=== PATIENT | female | born 1965 | race Caucasian/White ===

== ENCOUNTER → 2017-06-29 15:35 | Outpatient (CLI) | payer BC, SELFPAY ==
--- NOTE | 2017-06-29 15:38 | RAD_ITS ---
STUDY: X-RAY - RIGHT ANKLE REASON FOR EXAM: Female, 51 years old. Sprain TECHNIQUE: 3 view(s) of the ankle. COMPARISON: None. FINDINGS: Normal visualized distal tibia and fibula. Normal medial and lateral malleoli. Normal tibiotalar articulation and ankle mortise. Normal visualized talus and calcaneus. The visualized subtalar, talonavicular, calcaneocuboid and tarsal articulations are normal. Mild soft tissue swelling overlying the lateral malleolus.. RAD/Ankle min 3 Views IMPRESSION: Mild lateral malleolus sprain. No evidence for acute fracture Electronically Signed: Gerald Galindo MD at 16:50 EDT , Service support ,
== END ==
PROVIDERS: Family Provider Family Medicine; PCP Family Medicine; Visit Provider Family Medicine
DX: S93.401A Sprain of unspecified ligament of right ankle, initial encounter (principal)
CPT/HCPCS: 73610

== ENCOUNTER → 2018-03-02 12:30 | Outpatient (CLI) | payer BC, SELFPAY ==
--- NOTE | 2018-03-02 12:33 | BI_ITS ---
MAMMOGRAPHY - BILATERAL SCREENING REASON FOR EXAM: Female, 52 years old. Routine annual screening examination. PERTINENT HISTORY: Non-contributory. TECHNIQUE: Digital bilateral breast katharine (3D mammographic acquisition) in the CC and MLO projections. 2-D mediolateral oblique (MLO) and craniocaudad (CC) views of both breasts were obtained. CAD: Full Field Digital Mammography with Computer Added Detection was not performed. COMPARISON: Comparison is made with prior study dated February 03, 2017 and February 02, 2016. FINDINGS: Breast Composition: The breasts are heterogeneously dense, which may obscure small masses. There are no dominant masses or suspicious calcifications. No other significant abnormalities are identified. There has been no significant change since the prior study. BI/SCREENING MAMM (CAD), BILAT IMPRESSION: Stable bilateral screening mammogram. Yearly follow-up mammogram recommended. (A) ASSESSMENT CATEGORY: BIRADS Category 1: Negative. A letter regarding these results will be sent to the patient by the facility within 30 days. Approximately 10% of breast cancers are not detected by mammography. A normal mammogram should not delay biopsy of a clinically suspicious abnormality. [id number] Electronically Signed: Andrei Smith MD at 8:26 EST Tel [phone], Service support ,
== END ==
PROVIDERS: Family Provider Family Medicine; PCP Family Medicine; Referring Provider Obstetrics & Gynecology; Visit Provider Obstetrics & Gynecology
DX: Z12.31 Encounter for screening mammogram for malignant neoplasm of breast (principal)
CPT/HCPCS: 77063; 77067

== ENCOUNTER → 2018-05-28 | Outpatient (CLI) | payer BC, SELFPAY ==
[2016-12-21 06:14] VITALS: BMI 25.6
[2018-05-28 10:00] LABS: Absolute Lymphocyte Count 2.25 X10^3/ul (0.83-4.51); Absolute Neutrophil Count 3.1 X10^3/uL (2.0-7.7); Basophil# 0.02 X10^3/uL; Basophil% 0.3 % (0-1); Eosinophil# 0.23 X10^3/uL; Eosinophils% 3.8 % (0-5); Hematocrit 43.4 % (37-47); Hemoglobin 14.9 g/dl (12.0-15.0); Lymphocyte # 2.25 X10^3/ul (4.0); Lymphocyte % 37.6 % (19-41); Mean Corp Hgb Conc 34.3 g/gl (32-36); Mean Corpuscular Hgb 28.3 pg (27.0-32.0); Mean Corpuscular Volume 82.5 fL (81-99); Mean Platelet Vol. 10.1 fl (6.2-12.0); Monocyte# 0.42 X10^3/uL; Neutrophil # 3.06 X10^3/uL (2.7-7.7); Neutrophil % 51.3 % (47-70); Platelet Count 397 K/mm3 (150-450); RBC Distribution Width CV 13.5 % (11.6-14.6); RBC Distribution Width SD 40.2 fl (35.1-43.9); Red Blood Count 5.26 M/mm3 (4.2-5.4)
[2018-05-28 10:05] LABS: POSITIVE COUNT NO; POSITIVE DIFFERENTIAL NO; POSITIVE MORPHOLOGY NO
[2018-05-28 10:06] LABS: Anion Gap 6 (5-15); BUN 15 mg/dL (7-18); BUN/Creat Ratio 18.9 RATIO (10-20); Chloride 107 mmol/L (98-107); Cholesterol 283 mg/dL (200); Creatinine, Serum 0.79 mg/dL (0.55-1.02); EST Glomerular Filtration Rate 80 mL/min (>60); Est Glom Filt Rate - Afr Amer 97 mL/min (>60); Glucose 90 mg/dL (74-106); High Density Lipoprotein 55 mg/dL; Potassium 3.5 mmol/L (3.5-5.1); Sodium Level 138 mmol/L (136-145); Triglycerides 126 mg/dL; Very Low Density Lipoprotein 25 mg/dL (5-40)
[2018-05-28 10:16] LABS: Vitamin D,25 Hydroxy 35.4 ng/mL (29.95-100.01)
== END | disposition home or self-care (01) ==
PROVIDERS: Family Provider Family Medicine; PCP Family Medicine; Referring Provider Family Medicine; Visit Provider Family Medicine
DX: K58.9 Irritable bowel syndrome, unspecified (principal); E78.00 Pure hypercholesterolemia, unspecified
CPT/HCPCS: 36415; 80048; 80061; 82306; 85025

== ENCOUNTER → 2019-01-28 14:30 | Outpatient (CLI) | payer BC, SELFPAY ==
[2019-01-31 12:07] LABS: Age Gdln ACOG Testing 30-65 (.)
[2019-01-31 15:46] LABS: HPV APTIMA, High Risk Negative (Negative); HPV Reflexed? YES, CHARGE PATIENT
== END ==
PROVIDERS: Visit Provider Obstetrics & Gynecology
DX: Z12.4 Encounter for screening for malignant neoplasm of cervix (principal)
CPT/HCPCS: 87624; 88175; G0145

== ENCOUNTER → 2019-03-05 12:41 | Outpatient (CLI) | payer BC, SELFPAY ==
--- NOTE | 2019-03-05 12:43 | BI_ITS ---
MAMMOGRAPHY - BILATERAL SCREENING REASON FOR EXAM: Female, 53 years old. Routine annual screening examination. PERTINENT HISTORY: Non-contributory. TECHNIQUE: Digital bilateral breast carie (3D mammographic acquisition) in the CC and MLO projections. 2-D mediolateral oblique (MLO) and craniocaudad (CC) views of both breasts were obtained. CAD: Full Field Digital Mammography with Computer Added Detection was performed. COMPARISON: Comparison is made with prior study dated March 02, 2018 and February 03, 2017. FINDINGS: Breast Composition: The breasts are heterogeneously dense, which may obscure small masses. There are no dominant masses or suspicious calcifications. No other significant abnormalities are identified. There has been no significant change since the prior study. BI/SCREEN MAMM (CAD) W/CARIE BILAT IMPRESSION: Stable bilateral screening mammogram. Yearly follow-up mammogram recommended. (A) ASSESSMENT CATEGORY: BIRADS Category 1: Negative. A letter regarding these results will be sent to the patient by the facility within 30 days. Approximately 10% of breast cancers are not detected by mammography. A normal mammogram should not delay biopsy of a clinically suspicious abnormality. [id number] Electronically Signed: Andrei Smith, at 15:02 EST , Service support ,
== END ==
PROVIDERS: Family Provider Family Medicine; PCP Family Medicine; Referring Provider Obstetrics & Gynecology; Visit Provider Obstetrics & Gynecology
DX: Z12.31 Encounter for screening mammogram for malignant neoplasm of breast (principal)
CPT/HCPCS: 77063; 77067

== ENCOUNTER → 2020-03-20 07:42 | Outpatient (CLI) | payer OTHER, SELFPAY ==
--- NOTE | 2020-03-20 07:45 | BI_ITS ---
MAMMOGRAPHY - BILATERAL SCREENING REASON FOR EXAM: Female, 54 years old. Routine annual screening examination. PERTINENT HISTORY: Non-contributory. TECHNIQUE: Digital bilateral breast carie (3D mammographic acquisition) in the CC and MLO projections. 2-D mediolateral oblique (MLO) and craniocaudad (CC) views of both breasts were obtained. CAD: Full Field Digital Mammography with Computer Added Detection was performed. COMPARISON: Comparison is made with prior study dated 09/03/2019 and 03/02/2018. FINDINGS: Breast Composition: The breasts are heterogeneously dense, which may obscure small masses. There are no dominant masses or suspicious calcifications. No other significant abnormalities are identified. There has been no significant change since the prior study. BI/SCRN MAMM (CAD)W/CARIE BILAT IMPRESSION: Stable bilateral screening mammogram. Yearly follow-up mammogram recommended. (A) ASSESSMENT CATEGORY: BIRADS Category 2: Benign. A letter regarding these results will be sent to the patient by the facility within 30 days. Approximately 10% of breast cancers are not detected by mammography. A normal mammogram should not delay biopsy of a clinically suspicious abnormality. [id number] Electronically Signed: Andrei Smith MD at 9:19 EST , Service support ,
== END ==
PROVIDERS: PCP Family Medicine; Referring Provider Student in an Organized Health Care Education/Training Program; Visit Provider Student in an Organized Health Care Education/Training Program
DX: Z12.31 Encounter for screening mammogram for malignant neoplasm of breast (principal)
CPT/HCPCS: 77063; 77067

== ENCOUNTER → 2020-03-26 11:48 | Outpatient (CLI) | payer OTHER, SELFPAY ==
[2016-12-21 06:14] VITALS: BMI 25.6
[2020-03-26 14:09] LABS: Follicle Stimulating Hormone 75.2 mIU/mL; Luteinizing Hormone 45.6 mIU/mL
== END ==
PROVIDERS: PCP Family Medicine; Visit Provider Student in an Organized Health Care Education/Training Program
DX: N92.6 Irregular menstruation, unspecified (principal); N95.1 Menopausal and female climacteric states
CPT/HCPCS: 36415; 83001; 83002

== ENCOUNTER → 2020-04-20 | Outpatient (CLI) | payer OTHER, SELFPAY ==
[2016-12-21 06:14] VITALS: BMI 25.6
--- NOTE | 2020-04-20 08:55 | EMB_PTH ---
PATIENT: ARACELI CLEARY LOC: [facility] U#:[id number] AGE/SX: 54/F ROOM: RE04/20/[address]: Dr. Layla Joiner DO : 1965 BED: DIS: 04/20/2020 SPEC #: [id number] RECD: 04/20/20 09:35 STATUS: TIRSO REMayo #: [id number] VONNIE: 04/20/20 08:[address]: Layla Joiner DEPT: SURGICAL PATHOLOGY RECD BY: Trisha Hart ENTERED: 04/20/20 11:30 SP TYPE: ENDOM BX/C YI DR: Dr. Marco Ritchie MD Tissues: Endometrium, NOS Procedures: Surgery Specimen Level IV HEADER OPERATION: Endometrial biopsy PRE-OP DIAGNOSIS: Irregular bleeding TISSUE SUBMITTED: Endometrial biopsy MICROSCOPIC DIAGNOSIS Endometrial biopsy: Strips of benign endometrial epithelium and superficial fragments of benign endometrial tissue. See comment. FEMI:ruthann 04/21/2020 COMMENT Clinical correlation and appropriate follow up are necessary. MICROSCOPIC DESCRIPTION Slides are reviewed. GROSS DESCRIPTION Received in fixative is one container labeled with the patient's name and designated EMB. The specimen consists of multiple fragments of hemorrhagic soft tissue that in aggregate measure 1.5 x 0.2 x 0.1 cm. The specimen is totally submitted in one cassette. / SJ:ruthann 04/20/20 TC:4 CPT: 09289
== END | disposition home or self-care (01) ==
LOC: LABSPEC 09:30
PROVIDERS: PCP Family Medicine; Visit Provider Student in an Organized Health Care Education/Training Program
DX: N92.6 Irregular menstruation, unspecified (principal)
CPT/HCPCS: 88305

== ENCOUNTER 2020-06-08 08:26 | Day surgery (SDC) | payer OTHER, SELFPAY ==
--- NOTE | 2020-06-03 10:09 | PCM.HPOB.BLA ---
History and Physical Date of Admission: 06/08/20 HISTORY OF PRESENT ILLNESS: On 06/03/2020, Faith Pereira, a 54 year old female 2 0 0 0 2, presented for hysteroscopy, dilation and curettage, endometrial ablation for post menopausal bleeding. EMB was completed and negative for hyperplasia. MEDICAL HISTORY: 1. White coat hypertension ALLERGIES: NKA MEDICATIONS HISTORY: Patient is also takin. metoprolol tartrate 50 mg-hydrochlorothiazide 25 mg tablet, 1 PO QD SURGICAL HISTORY: 1. Endoscopy, 2. 02/20/2009 colonoscopy 3. colonoscopy 12/2016 MENSTRUAL HISTORY: LMP Known?- DefiniteAmount/Duration - 3-4 DAYS, Regularity - Irregular, LMP - 02/28/20, Age Onset Menarche - 11 PAST PREGNANCIES: Total Pregnancies - 2; Full Term Pregnancies - 2; Premature - 0; Abortions, Induced - 0; Abortions, Spontaneous - 0; Ectopics - 0; Multiple Births - 0; Living Children - 2 FAMILY HISTORY: Father - Cancer; Father - FH: Diabetes mellitus type 2; MaternalGrandparent - FH: Hypertension; PaternalGrandparent - FH: Hypertension; SOCIAL HISTORY: Alcohol Use - denies drinking Smoking - denies smoking Druges - denies REVIEW OF SYSTEMS: GENERAL - Denies fever, or chills SKIN - Denies skin changes EYES - Denies visual changes EARS - Denies difficulty hearing NOSE - Denies nasal congestion or bleeding MOUTH - Denies sore throat or difficulty swallowing NECK - Denies pain or swelling RESPIRATORY - Denies shortness of breath or wheezing CARDIOVASCULAR - Denies palpitations or chest pain GASTROINTESTINAL - Denies nausea, vomiting, diarrhea, constipation GENITOURINARY - irregular bleeding MUSCULOSKELETAL - Denies joint or muscle pain NEUROLOGICAL - Denies localized numbness or weakness PSYCHIATRIC - Denies depression or anxiety ENDOCRINE - Denies heat or cold intolerance, weight loss or gain HEMATO-IMMUNOLOGIC - Denies excesive bleeding with cuts BP- 170/100 Sitting, Right arm, regular cuff Weight- 150.00 lbs Height- 61.50 inch BMI:27.94 Second BP:170/100Sitting, Left arm, regular cuff CONSTITUTIONAL - NAD, well nourished, and well developed SKIN - No rash, lesions, or ulcers HEENT - Normocephalic, PERRLA, EOMI NECK - No nodes, no nuchal rigidity and thyroid normal size and texture LUNGS - normal respiratory rate and rhythm EXTREMITIES - No edema or calf tenderness NEUROLOGICAL - Cranial nerves II-XII grossly intact PSYCHIATRIC - A and O to time, place, person, mood and affect DETAILED PELVIC EXAM External Genital Vagina - non-tender without lesions Urethra/Urethral Meatus - non-tender Bladder - non-tender Vagina - vaginal wolfe are pink and moist without loss of rugae and no evidence of atropy Cervix - without cervical motion tenderness and has normal size and features without evident lesions Uterus - 5-6 cm in size, mobile and nontender Adnexa - clear without massess or tenderness ASSESSMENT/PLAN BY DIAGNOSIS: 1. Irregular Menstruation, Unspecified and Postmenopausal Bleeding Irregular bleeding, patient is post menopausal based on labs. EMB neg. Planned for hysteroscopy, dilation and curettage, Makenna ablation. R/B/A discussed. Risks include, but are not limited to: risk of bleeding to the point of transfusion, infection, injury to surrounding tissue (bowel/bladder), uterine perforation, ICU admission, VTE. PT with severe white coat HTN, will need anesthesia preop consult to review her history
--- NOTE | 2020-06-05 12:29 | EKG12_ITS ---
Test Reason : PREOP Blood Pressure : / mmHG Vent. Rate : 100 BPM Atrial Rate : 100 BPM P-R Int : 148 ms QRS Dur : 150 ms QT Int : 378 ms P-R-T Axes : 057 -35 082 degrees QTc Int : 487 ms Normal sinus rhythm Left axis deviation Left bundle branch block Abnormal ECG Confirmed by DAISY KRUEGER, MALU ([id number]), telegraph editor PHILLIP MELVIN ([id number]) on 06/08/2020 8:46:16 AM Referred By: Layla Joiner Confirmed By:MALU VILLA MD
[2020-06-05 13:17] LABS: Hematocrit 45.2 % (37-47); Hemoglobin 14.9 g/dL (12.0-15.0); Mean Corpuscular Hgb 28.7 pg (27.0-32.0); Mean Corpuscular Volume 87.1 fL (81-99); Mean Platelet Vol. 10.1 fl (6.2-12.0); Platelet Count 443 K/mm3 (150-450); RBC Distribution Width CV 13.2 % (11.6-14.6); RBC Distribution Width SD 42.1 fl (35.1-43.9); Red Blood Count 5.19 M/mm3 (4.2-5.4); White Blood Count 6.9 K/mm3 (4.4-11.0)
--- NOTE | 2020-06-08 | EMB_PTH ---
PATIENT: ARACELI CLEARY [place] [facility] [place][id number] AGE/SX: 54/F ROOM: RE06/08/[address]: Dr. Layla Joiner DO : 1965 BED: DIS: 06/08/2020 SPEC #: [id number] RECD: 06/08/20 13:28 STATUS: TIRSO REMayo #: [id number] VONNIE: 06/08/20 00:[address]: Layla Joiner DEPT: SURGICAL PATHOLOGY RECD BY: Donald Landaverde ENTERED: 06/09/20 07:25 SP TYPE: ENDOM BX/C YI DR: Dr. Marco Ritchie MD Tissues: Endometrium, NOS Procedures: Surgery Specimen Level IV HEADER OPERATION: Hysteroscopy, D & C Makenna PRE-OP DIAGNOSIS: Irregular menstruation; postmenopausal bleeding TISSUE SUBMITTED: Endometrial curettings MICROSCOPIC DIAGNOSIS Endometrium, curettings: Polypoid fragment of weakly proliferative to inactive endometrium with hemorrhage. AM:ruthann 06/10/2020 MICROSCOPIC DESCRIPTION Slides are reviewed. GROSS DESCRIPTION Received in fixative is one container labeled with the patient's name and designated endometrial curettings. The specimen consists of multiple fragments of hemorrhagic mucoid tissue that in aggregate measure 0.5 x 0.1 x 0.1 cm. The specimen is totally submitted in one cassette. / SJ:ruthann 06/09/20 TC:5 CPT: 54560
[2020-06-08 08:57] VITALS: BP 163/73; PULSE 106; RESP 16; TEMP 37.4; O2SAT 100; BMI 29.0
[2020-06-08] MEDS: Lactated Ringers 1,000 ML 125 ML IV ×2 (09:20→10:58)
--- NOTE | 2020-06-08 12:08 | OP.PCM_ITS ---
Report of Operation Date of Procedure: 06/08/20 Pre-Operative Diagnosis: Abnormal uterine bleeding, menorrhagia Post-Operative Diagnosis: Abnormal uterine bleeding, menorrhagia Surgery/Procedure Performed:: Hysteroscopy, dilation curettage, endometrial ablation Description of Surgical Findings:: Normal-appearing external genitalia. Fluffy endometrial lining. Type of Anesthesia:: MAC Specimen's removed: Endometrial curettings Estimated Blood Loss (mL): 5 cc Fluids Replaced: 1100 cc Description of Procedure: Indications: 54-year-old female with history of menorrhagia and abnormal uterine bleeding. Patient had benign endometrial biopsy in office. Decision for hysteroscopy D&C and endometrial ablation was made. All risk benefits and alternatives were discussed with patient. Risks include but are not limited to: Risk of bleeding to the point of transfusion, infection, injury to surrounding tissue including bowel or bladder, VTE, ICU admission. Patient aware and consented. Procedure: Patient taken to the operating room MAC anesthesia induced. Patient placed in the dorsal lithotomy position and prepped and draped in the usual sterile fashion. Weighted speculum placed in posterior vagina and Minaya retractor used to visualize the cervix which was grasped with a single-tooth tenaculum anteriorly. Cervix sequentially dilated. Sounded to 7 cm. Hysteroscope placed through cervical canal and inspection of the endometrial cavity was completed with above findings. Cervical length noted to be 3 cm. Curettage of the endometrial cavity completed a 360 degree manner. Makenna device opened, cavity assessment passed. Device deployed. Device removed. Hysteroscope utilized to examine endometrial cavity which noted ablation of endometrial lining. Single- tooth tenaculum removed, hemostatic tenaculum sites. At the end of the procedure all needle, lap, sponge counts were correct x3. No urine output measured. - Admit VTE Documentation VTE Mechan Device Prophylaxis: SCD's
--- NOTE | 2020-06-08 12:12 | DCINST_ITS ---
Discharge Activity: May Shower May resume sexual activity in: 3 weeks Weight Bearing Status: Weight bearing as tolerated Call your doctor if your incision/area has: Continuous Slow Oozing, Sudden Increased Bleeding, Increased Redness Call your doctor if you observe: Fever of 101 or Higher, Inability to urinate, Inability to have a bowel movement, Using more than one pad per hour, Shortness of breath, Calf discomfort, Uncontrolled pain Cleanse incision/area with: Soap & Water Allergies/Adverse Reactions: Allergies No Known Allergies Allergy (Verified 06/01/20 10:52) Medications to take at Discharge Metoprolol Tartrate [Lopressor (Beta Ned)] 50 mg PO DAILY 06/01/20 Multivitamin 1 each PO DAILY 06/01/20 Ubidecarenone/Vit E Acet [Co Q-10 100 mg Softgel] 1 each PO DAILY 06/01/20 hydrOXYzine pamoate capsule 25 mg PO 4X/DAY PRN 06/08/20 Primary Care Physician: Kartik Ritchie MD [Primary Care Provider] - Test Results: Test results from this visit will be discussed in further detail at your follow- up appointment, if applicable. Please Follow Up With: Layla Joiner DO When: 2 weeks
[2020-06-08 12:15] VITALS: BP 101/73; BP 163/73; PULSE 90; RESP 16; TEMP 36.3; O2SAT 99
[2020-06-08 12:30] VITALS: BP 106/68; BP 163/73; PULSE 98; RESP 16; O2SAT 97
[2020-06-08 12:35] VITALS: BP 117/72; BP 163/73; PULSE 100; RESP 16; O2SAT 98
[2020-06-08 12:39] VITALS: BP 128/62; BP 163/73; PULSE 96; RESP 16; TEMP 36.2; O2SAT 97
[2020-06-08 13:03] VITALS: BP 145/73; BP 163/73; PULSE 82; RESP 18; TEMP 36.6; O2SAT 98
== END 2020-06-08 13:08 | disposition home or self-care (01) ==
LOC: SDC 08:26 → AC 08:27
PROVIDERS: PCP Family Medicine; Referring Provider Student in an Organized Health Care Education/Training Program; Visit Provider Student in an Organized Health Care Education/Training Program
PROC: 0U5B8ZZ Destruction of Endometrium, Via Natural or Artificial Opening Endoscopic (ICD-10-PCS; CPT 58558; principal; 2020-06-08 09:45)
DX: N95.0 Postmenopausal bleeding (principal); Z20.822 Contact with and (suspected) exposure to COVID-19
CPT/HCPCS: 58563; 36415; 85027; 86850; 86900; 86901; 87426; 88305; 93005; C9803; J7120; J2405

== ENCOUNTER 2020-09-16 06:46 | Day surgery (SDC) | payer OTHER, SELFPAY ==
[2020-07-22 15:16] VITALS: BMI 28.4
[2020-09-16 07:20] VITALS: BP 153/71; PULSE 100; RESP 16; TEMP 36.9; O2SAT 98; BMI 28.0
[2020-09-16] MEDS: Lactated Ringers 1,000 ML 100 ML IV (07:26)
--- NOTE | 2020-09-16 07:52 | H&P.OPEN ---
HPI - General HPI Narrative ARACELI CLEARY, is a 55 F who presents for screening colonoscopy due to history of colon polyps and family history of rectal cancer. Patient's father was diagnosed with metastatic rectal cancer and is later 60s. Patient's last colonoscopy was in December [address] Quach she did have a tubular adenoma at the rectum. Recommend follow-up in 3 years. Patient states she has bowel movements daily denies any blood. This patient's office visit still denies any chronic abdominal pain/nausea/vomiting/reflux. Patient is anxiety doing well with the Ativan she takes prior to coming in today with her given to her after her office appointment. [facility] Medical History (Updated 09/11/20 @ 08:59 by Nellie Moy) Anxiety Cancer Family history of colon cancer in father Heartburn Hemorrhoids Hypertension Non-smoker Post-menopausal Home Medications coenzyme X43-idoeeof E 1 each PO DAILY 06/01/20 [History Last Taken Unknown] metoprolol tartrate 50 mg PO DAILY 06/01/20 [History Last Taken 09/16/20 06:00] multivitamin 1 each PO DAILY 06/01/20 [History Last Taken Unknown] cyclobenzaprine 5 mg tablet 5 mg PO TID PRN 07/22/20 [History Last Taken Unknown] hydroxyzine pamoate 25 mg capsule 25 mg PO TID-QID PRN cap 07/22/20 [History Last Taken Unknown] lorazepam 1 mg tablet 1 mg PO .x1 PRN #1 tab 07/22/20 [Rx Last Taken 09/16/20 06:00] Allergy/AdvReac Type Severity Reaction Status Date / Time No Known Allergies Allergy Verified 09/16/20 07:18 Family History (Updated 07/22/20 @ 15:15 by Pili Taylor) Mother High blood cholesterol Cancer Father Colon cancer Late 60's Kidney disease Diabetes Cancer skin cancer Surgical History (Updated 09/11/20 @ 08:59 by Nellie Moy) History of esophagogastroduodenoscopy (EGD) History of hysteroscopy Hx of colonoscopy Hx of prior ablation treatment Hx of wisdom tooth extraction Social History (Updated 07/22/20 @ 15:16 by Pili Taylor) Smoking Status: Never smoker second hand exposure: No alcohol intake: never substance use type: does not use caffeine: Yes what type of physical activity do you participate in: walking frequency: 1-2 times per week Past Medical/Surgical History Planned Operation Planned Operative Procedure/s: CSCOPE S.O.S: No Previous Hospitalizations/Surgeries HX Hospitalizations: No HX of Surgeries: colonoscopy x2 LAST 12/21/2016 egd Any Problems With Anesthesia: No You/Your Family Experience Fever (Hyperthermia) With Anes: No Cholinesterase deficiency: No Cardiovascular Hx Chest Pain within Last 2 months: No Hx of Irregular Heartbeat and/or Afib: No Hx Heart Attack: No Hx Congestive Heart Failure: No Hx Rheumatic Fever: No Hx Hypertension: Yes (CONTROLLED WITH MED) Hx Internal Defibrillator: No Hx Pacemaker: No Hx Cardiac Catheterization: No Hx Cardiac Surgery/Stents/Etc.: No Hx Stress Test: No Hx Pain in Legs when Walking/Leg Cramps: No Respiratory Chronic Cough: No HX of Shortness of Breath: No Hoarseness: No Hx Chronic Obstructive Pulmonary Disease (COPD): No Hx Asthma: No Hx Emphysema: No Hx Sleep Apnea: No CPAP: No (NA) Hx Respiratory Tract Infection/Cold (presently): No Do You Snore Loudly (louder than talking or can be heard): Yes Do You Often Feel Tired/ Fatigued/ Sleepy Dring Daytime?: No Has Anyone Observed You Stop Breathing During Sleep?: No Result (for STOP score): Positive Hx Smoking: No Smoking Status: Never smoker Gastrointestinal Hx Gastroesophageal Reflux: Yes (occ/no meds) Controlled With Meds: No Hx Gastrointestinal Disorders: Yes (ibs) Hx Gastrointestinal Bleed: No Hx Ulcer: No Hx Hiatal Hernia: No Difficulty Chewing/Swallowing: No Special diet followed at home: No Hx Unplanned Weight Loss of 20#: No HX Unplanned Weight Gain of 20#: No Neurological Hx Seizures: No HX Syncope/Blackout Spells/Unconsciousness: No Hx Transient Ischemic Attacks (TIA): No Hx Multiple Sclerosis: No Hx Parkinson's Disease: No Hx Head/Neck Injury: No Hx Headaches: No Hx Back Injury/Pain: No Recent Onset of Speech Difficulty: No Restless Legs: No Does patient have nerve stimulator: No Blood Disorder Hx Leukemia: No Bleeding Tendencies: No Hx Deep Vein Thrombosis: No Hx High Cholesterol: Yes (borderline) Blood Transmitted Disease: No Hx Hepatitis: No Hx Cirrhosis: No Hx Anemia: No Hx Blood Disorders: No Reproduction : No Is Patient Lactating: No Hx Hysterectomy: No Hx Tubal Ligation: No Are You Post Menopause: Yes Genitourinary Hx Renal Disease: No Musculoskeletal Hx Arthritis: No Hx Rheumatoid Arthritis: No Hx Gout: No Recent Onset of an Orthopedic Problem: No Endocrine Hx Diabetes: No Thyroid Disease: No Hx Steroid Therapy: No Psycho/Social Hx Substance Use: No Hx Alcohol Use: No Hx Anxiety: No Hx Depression: No Mental Illness: No Hx Dementia: No Miscellaneous Hx Cancer: No Recent Exposure to Contagious Disease: No Hx of C-Diff: No Any Loose Teeth: No Allergies No Known Allergies Allergy (Verified 09/16/20 07:18) Discharge Is Pt Admitted From a [facility], or a Shelter: No After D/C, Where Do you Plan to Go: Return Home Vital Signs Vital Signs Vital Signs: 09/16/20 07:20 Temperature 98.5 F Temperature Source Temporal Pulse Rate 100 Respiratory Rate 16 Respiratory Pattern Normal Blood Pressure 153/71 H Blood Pressure Mean 98 Blood Pressure Source Monitor Blood Pressure Position Semi-Fowlers Blood Pressure Location Left Arm Pulse Ox 98 Oxygen Delivery Method Room Air Weight Weight: 148 lb 9.465 oz Body Mass Index (BMI) 28.0 Physical Exam Const alert, oriented x3 and no apparent distress HEENT normocephalic and head/scalp atraumatic Resp normal respiratory effort Cardio regular rate GI soft to palpation and non-tender; Negative for non-distended Palpation: Negative for guarding Extremity no clubbing, cyanosis or edema Neuro CN's II-XII intact bilaterally Psych mental status grossly normal Assessment & Plan Assessment/Plan (1) Hx of adenomatous colonic polyps: (2) Family history of colon cancer in father: Procedure Criteria Type of Procedure Procedure Type: Elective Elective Risks - COVID COVID Risk Discussion: The surgeon/proceduralist and patient have discussed in detail the risk of exposure to and/or potential harm posed by the COVID-19 virus with having a surgery/procedure at this time versus the risk of delaying the surgery/procedure. It is not possible to know either the risk of delaying the surgery or procedure or chance of getting an infection with perfect accuracy, but a joint decision was made between the patient and the surgeon/proceduralist to proceed at this time with the scheduled surgery/procedure as indicated on the consent form. Surgery Risks - Colonoscopy Risks Include but are not Limited To: Risks include but are not limited to: Bleeding, perforation requiring further surgery, inability to complete colonoscopy requiring barium enema.
--- NOTE | 2020-09-16 08:00 | COLBX_PTH ---
PATIENT: ARACELI CLEARY LOC: [facility] U#:[id number] AGE/SX: 55/F ROOM: RE09/16/[address]: Dr. Nelda Lance MD : 1965 BED: DIS: 09/16/2020 SPEC #: [id number] RECD: 09/16/20 10:53 STATUS: TIRSO REMayo #: [id number] VONNIE: 09/16/20 08:[address]: Nelda Lance DEPT: SURGICAL PATHOLOGY RECD BY: Trisha Hart ENTERED: 09/16/20 11:28 SP TYPE: COLON BX OTHR DR: Dr. Marco Ritchie MD Tissues: Transverse colon Procedures: Surgery Specimen Level IV HEADER OPERATION: Colonoscopy (MAC) PRE-OP DIAGNOSIS: History of adenomatous colonic polyps; colon cancer in father TISSUE SUBMITTED: Biopsy of transverse colon polyp MICROSCOPIC DIAGNOSIS Transverse colon polyp, biopsy: Tubular adenoma. AM:ruthann 09/17/2020 MICROSCOPIC DESCRIPTION Slides are reviewed. GROSS DESCRIPTION Received in fixative is one container labeled with the patient's name and designated biopsy of transverse colon polyp. The specimen consists of one irregular fragment of light foley soft tissue that measures 0.3 x 0.3 x 0.1 cm. The specimen is totally submitted in one cassette. / SJ:ruthann 09/16/20 TC:5 CPT: 00966
[2020-09-16 08:50] VITALS: BP 117/44; BP 153/71; PULSE 71; RESP 16; TEMP 36.6; O2SAT 95
--- NOTE | 2020-09-16 08:52 | OP.COLON_ITS ---
Patient Name: Faith Pereira Procedure Date: 09/16/2020 8:13 AM Date of : 1965 Age: 55 Procedure: Colonoscopy Indications: Screening in patient at increased risk: Family history of 1st-degree relative with colorectal cancer before age 60 years, Surveillance: Personal history of adenomatous polyps on last colonoscopy > 3 years ago Providers: Nelda Lance MD Referring MD: Nelda Lance MD Medicines: Monitored Anesthesia Care Patient Profile: This is a 55 year old female. Last Colonoscopy: 2016. Complications: No immediate complications. Procedure: Pre-Anesthesia Assessment: - Prior to the procedure, a History and Physical was performed, and patient medications and allergies were reviewed. The patient's tolerance of previous anesthesia was also reviewed. The risks and benefits of the procedure and the sedation options and risks were discussed with the patient. All questions were answered, and informed consent was obtained. Prior Anticoagulants: The patient has taken no previous anticoagulant or antiplatelet agents. ASA Grade Assessment: Per anesthesia. After reviewing the risks and benefits, the patient was deemed in satisfactory condition to undergo the procedure. After I obtained informed consent, the scope was passed under direct vision. Throughout the procedure, the patient's blood pressure, pulse, and oxygen saturations were monitored continuously. The Colonoscope was introduced through the anus and advanced to the cecum, identified by the appendiceal orifice, ileocecal valve and palpation. The colonoscopy was performed without difficulty. The patient tolerated the procedure well. The quality of the bowel preparation was good. Scope In: 8:25:31 AM Scope Withdrawal Time 0 hours 10 minutes 55 seconds Scope Out: 8:45:27 AM Total Procedure Duration Time 0 hours 19 minutes 56 seconds Findings: Hemorrhoids were found on perianal exam. Internal hemorrhoids were found. The hemorrhoids were Grade I (internal hemorrhoids that do not prolapse). A less than 5 mm polyp was found in the transverse colon. The polyp was sessile. The polyp was removed with a cold biopsy forceps. Resection and retrieval were complete. The exam was otherwise without abnormality. Impression: - Hemorrhoids found on perianal exam. - Internal hemorrhoids. - One less than 5 mm polyp in the transverse colon, removed with a cold biopsy forceps. Resected and retrieved. - The examination was otherwise normal. Recommendation: - Discharge patient to home. - Resume previous diet. - Continue present medications. - Await pathology results. - Repeat colonoscopy in 3 years for surveillance based on pathology results. Procedure Code(s): --- Professional --- 89154, PT, Colonoscopy, flexible; with biopsy, single or multiple Diagnosis Code(s): --- Professional --- Z80.0, Family history of malignant neoplasm of digestive organs Z86.010, Personal history of colonic polyps K64.0, First degree hemorrhoids D12.3, Benign neoplasm of transverse colon (hepatic flexure or splenic flexure) CPT copyright 2017 [employer]. All rights reserved. The codes documented in this report are preliminary and upon crm campaign manager review may be revised to meet current compliance requirements. MD Nelda Swartz MD 09/16/2020 8:51:25 AM This report has been signed electronically. Number of Addenda: 0 Note Initiated On: 09/16/2020 8:13 AM
--- NOTE | 2020-09-16 08:53 | OP.CCLET_ITS ---
09/16/2020 Kartik Ritchie [address] [place] [address] Re : Colonoscopy procedure for Faith Randall Dear Dr. Ritchie This procedure was performed on Wednesday, September 16, 2020. My impressions and recommendations are as follows: Impressions : - Hemorrhoids found on perianal exam. - Internal hemorrhoids. - One less than 5 mm polyp in the transverse colon, removed with a cold biopsy forceps. Resected and retrieved. - The examination was otherwise normal. Recommendations : - Discharge patient to home. - Resume previous diet. - Continue present medications. - Await pathology results. - Repeat colonoscopy in 3 years for surveillance based on pathology results. My findings are described in the full procedure note, which is enclosed. If I can be of further assistance, please feel free to contact me at Doctor phone number(s): , Work: . Sincerely, MD Nedla Swartz MD 09/16/2020 8:51:25 AM This report has been signed electronically.
[2020-09-16 08:55] VITALS: BP 107/45; BP 153/71; PULSE 71; RESP 16; O2SAT 95
[2020-09-16 09:00] VITALS: BP 122/54; BP 153/71; PULSE 72; RESP 16; O2SAT 100
[2020-09-16 09:05] VITALS: BP 127/56; BP 153/71; PULSE 70; RESP 16; TEMP 36.1; O2SAT 99
[2020-09-16 09:29] VITALS: BP 153/71
== END 2020-09-16 09:31 ==
LOC: EN 06:46 → AC 06:47
PROVIDERS: PCP Family Medicine; Referring Provider Surgery; Visit Provider Surgery
PROC: 0DJD8ZZ Inspection of Lower Intestinal Tract, Via Natural or Artificial Opening Endoscopic (ICD-10-PCS; CPT 45378; principal; 2020-09-16 07:55)
DX: Z12.11 Encounter for screening for malignant neoplasm of colon (principal); D12.3 Benign neoplasm of transverse colon; K64.0 First degree hemorrhoids; Z86.010 Personal history of colon polyps; Z80.0 Family history of malignant neoplasm of digestive organs; I10 Essential (primary) hypertension; F41.9 Anxiety disorder, unspecified; Z78.0 Asymptomatic menopausal state; Z79.899 Other long term (current) drug therapy
CPT/HCPCS: 45380; 87426; 88305; C9803; J7120; J2405

== ENCOUNTER 2021-04-02 11:56 | Outpatient (CLI) | payer BC, SELFPAY ==
--- NOTE | 2021-04-02 12:28 | BI_ITS ---
MAMMOGRAPHY - BILATERAL SCREENING REASON FOR EXAM: Female, 55 years old. Routine annual screening examination. PERTINENT HISTORY: Non-contributory. TECHNIQUE: Digital bilateral breast carie (3D mammographic acquisition) in the CC and MLO projections. 2-D mediolateral oblique (MLO) and craniocaudad (CC) views of both breasts were obtained. CAD: Full Field Digital Mammography with Computer Added Detection was performed. COMPARISON: Comparison is made with prior study dated 03/20/2020 and 03/05/2019. FINDINGS: Breast Composition: The breasts are heterogeneously dense, which may obscure small masses. There are no dominant masses or suspicious calcifications. No other significant abnormalities are identified. There has been no significant change since the prior study. BI/SCRN MAMM (CAD)W/CARIE BILAT IMPRESSION: Stable bilateral screening mammogram. Yearly follow-up mammogram recommended. (A) ASSESSMENT CATEGORY: BIRADS Category 1: Negative. A letter regarding these results will be sent to the patient by the facility within 30 days. Approximately 10% of breast cancers are not detected by mammography. A normal mammogram should not delay biopsy of a clinically suspicious abnormality. [id number] Electronically Signed: Andrei Smith MD at 14:01 EST ,
== END 2021-04-02 23:59 | disposition home or self-care (01) ==
LOC: OPBI 12:27
PROVIDERS: PCP Family Medicine; Referring Provider Student in an Organized Health Care Education/Training Program; Visit Provider Student in an Organized Health Care Education/Training Program
DX: Z12.31 Encounter for screening mammogram for malignant neoplasm of breast (principal)
CPT/HCPCS: 77063; 77067

== ENCOUNTER → 2021-07-16 | Outpatient (CLI) | payer BC, SELFPAY ==
[2021-07-23 16:48] LABS: HPV APTIMA, High Risk Negative (Negative)
== END | disposition home or self-care (01) ==
LOC: LABSPEC 16:07
PROVIDERS: PCP Family Medicine; Visit Provider Student in an Organized Health Care Education/Training Program
DX: Z12.4 Encounter for screening for malignant neoplasm of cervix (principal)
CPT/HCPCS: 87624; 88175; G0145

== ENCOUNTER → 2022-04-08 | Outpatient (CLI) | payer BC, SELFPAY ==
--- NOTE | 2022-04-08 09:35 | BI_ITS ---
MAMMOGRAPHY - BILATERAL SCREENING REASON FOR EXAM: Female, 56 years old. Routine annual screening examination. PERTINENT HISTORY: Non-contributory. TECHNIQUE: Digital bilateral breast carie (3D mammographic acquisition) in the CC and MLO projections. 2-D mediolateral oblique (MLO) and craniocaudad (CC) views of both breasts were obtained. CAD: Full Field Digital Mammography with Computer Added Detection was performed. COMPARISON: Comparison is made with prior study dated 04/02/2021 and 09/17/2020. FINDINGS: Breast Composition: The breasts are heterogeneously dense, which may obscure small masses. There are no dominant masses or suspicious calcifications. No other significant abnormalities are identified. There has been no significant change since the prior study. BI/SCRN MAMM (CAD)W/CARIE BILAT IMPRESSION: Stable bilateral screening mammogram. Yearly follow-up mammogram recommended. (A) ASSESSMENT CATEGORY: BIRADS Category 1: Negative. A letter regarding these results will be sent to the patient by the facility within 30 days. Approximately 10% of breast cancers are not detected by mammography. A normal mammogram should not delay biopsy of a clinically suspicious abnormality. [id number] Electronically Signed: Andrei Smith MD at 11:14 EST ,
== END | disposition home or self-care (01) ==
LOC: OPBI 09:33
PROVIDERS: PCP Family Medicine; Referring Provider Student in an Organized Health Care Education/Training Program; Visit Provider Student in an Organized Health Care Education/Training Program
DX: Z12.31 Encounter for screening mammogram for malignant neoplasm of breast (principal)
CPT/HCPCS: 77063; 77067

== ENCOUNTER 2023-03-24 10:08 | Outpatient (CLI) | payer BC, SELFPAY ==
[2023-03-24 12:34] LABS: Hematocrit 43.1 % (37-47); Hemoglobin 14.3 g/dL (12.0-15.0); Mean Corp Hgb Conc 33.2 g/dL (32-36); Mean Corpuscular Hgb 28.2 pg (27.0-32.0); Mean Platelet Vol. 10.7 fl (6.2-12.0); Platelet Count 399 K/mm3 (150-450); RBC Distribution Width CV 13.7 % (11.6-14.6); RBC Distribution Width SD 42.5 fl (35.1-43.9); Red Blood Count 5.07 M/mm3 (4.2-5.4); White Blood Count 7.2 K/mm3 (4.4-11.0)
[2023-03-24 12:58] LABS: Hemoglobin A1c 5.3 % (3.8-5.6)
[2023-03-24 13:02] LABS: ALB/GLOB Ratio 1.1 RATIO (0.9-2.4); AST(SGOT) 30 U/L (15-37); Alanine Aminotransfer ALT/SGPT 52 U/L (13-56); Albumin, Serum 4.2 g/dL (3.2-5.0); Alkaline Phosphatase 119 U/L (45-117); Anion Gap 4 (5-15); BUN 13 mg/dL (7-18); BUN/Creat Ratio 17.1 RATIO (10-20); Calcium,Total 9.8 mg/dL (8.5-10.1); Chloride 109 mmol/L (98-107); Cholesterol 233 mg/dL (200); Creatinine, Serum 0.76 mg/dL (0.55-1.02); EST Glomerular Filtration Rate 83 mL/min (>60); Est Glom Filt Rate - Afr Amer 100 mL/min (>60); Globulin 3.9 g/dL (2.2-4.2); Glucose 100 mg/dL (74-106); High Density Lipoprotein 54 mg/dL; Potassium 3.8 mmol/L (3.5-5.1); Protein, Total 8.1 g/dL (6.4-8.2); Sodium Level 138 mmol/L (136-145); Thyroid Stim Hormone (TSH) 2.17 uIU/mL (0.358-3.74); Triglycerides 127 mg/dL; Very Low Density Lipoprotein 25 mg/dL (5-40)
== END 2023-03-24 23:59 | disposition home or self-care (01) ==
LOC: MTLAB 10:09
PROVIDERS: PCP Family Medicine; Referring Provider Family Medicine; Visit Provider Family Medicine
DX: E78.00 Pure hypercholesterolemia, unspecified (principal); I10 Essential (primary) hypertension; Z13.29 Encounter for screening for other suspected endocrine disorder
CPT/HCPCS: 36415; 80053; 80061; 83036; 84443; 85027

== ENCOUNTER → 2023-05-26 | Outpatient (CLI) | payer BC, SELFPAY ==
--- NOTE | 2023-05-26 13:55 | BI_ITS ---
MAMMOGRAPHY - BILATERAL SCREENING REASON FOR EXAM: Female, 57 years old. Routine annual screening examination. PERTINENT HISTORY: Non-contributory. TECHNIQUE: Digital bilateral breast carie (3D mammographic acquisition) in the CC and MLO projections. 2-D mediolateral oblique (MLO) and craniocaudad (CC) views of both breasts were obtained. CAD: Full Field Digital Mammography with Computer Added Detection was performed. COMPARISON: Comparison is made with prior study dated April 08, 2022 and April 02, 2021. FINDINGS: Breast Composition: There are scattered areas of fibroglandular density. There are no dominant masses or suspicious calcifications. No other significant abnormalities are identified. There has been no significant change since the prior study. BI/SCRN MAMM (CAD)W/CARIE BILAT IMPRESSION: Stable bilateral screening mammogram. Yearly follow-up mammogram recommended. (A) ASSESSMENT CATEGORY: BIRADS Category 1: Negative. A letter regarding these results will be sent to the patient by the facility within 30 days. Approximately 10% of breast cancers are not detected by mammography. A normal mammogram should not delay biopsy of a clinically suspicious abnormality. [id number] Electronically Signed: Andrei Smith MD at 15:07 EDT ,
== END | disposition home or self-care (01) ==
LOC: OPBI 13:54
PROVIDERS: PCP Family Medicine; Referring Provider Family Medicine; Visit Provider Family Medicine
DX: Z12.31 Encounter for screening mammogram for malignant neoplasm of breast (principal)
CPT/HCPCS: 77063; 77067

== ENCOUNTER 2023-11-27 08:15 | Day surgery (SDC) | payer BC, SELFPAY ==
[2023-11-27] VITALS (12 sets, daily range): BP systolic 72–142; BP diastolic 31–84; PULSE 73–151; RESP 14–16; TEMP 36.3–36.9; O2SAT 93–100; BMI 27.8
--- NOTE | 2023-11-27 08:37 | EKG12_ITS ---
Test Reason : peop Blood Pressure : / mmHG Vent. Rate : 148 BPM Atrial Rate : 148 BPM P-R Int : 144 ms QRS Dur : 152 ms QT Int : 292 ms P-R-T Axes : 000 -33 069 degrees QTc Int : 458 ms Sinus tachycardia Left axis deviation Left bundle branch block Abnormal ECG No previous ECGs available Confirmed by CHINTAN KRUEGER, GERMAN ([id number]), editor newspaper JESUS ROPER ([id number]) on 11/28/2023 11:32:17 AM Referred By: Nelda Lance Confirmed By:GERMAN WOODSON MD
--- NOTE | 2023-11-27 08:41 | PCM.PRE.AN2 ---
ASA Classification* ASA Classification ASA Classification: 2 Assessment & Plan Anesthesia* Anesthesia Assessment Anesthesia Assessment: Discussed sedation and/or anesthesia options, risks, benefits, and alternatives with patient/parents/legal guardian/POA. Questions invited. The patient/parents/legal guardian/POA seems to understand and agrees to proceed with anesthesia plan. Reviewed the physical assessment, medical history, allergy history and patient home medications list prior to surgery/procedure/anesthetic and documented any changes. Performed airway and anesthesia risk assessments. Anesthesia Type Anesthesia Type: MAC Anesthesia Focused Assessment* Temperature: 98.5 F Pulse Rate: 151 Blood Pressure: 142/77 Respiratory Rate: 16 Pulse Ox: 100 Airway Assessment Mouth opens: >3 cm Mallampati Score: II Focused Labs Anesthesia Preop lab: CBC WBC 7.2 K/mm3 (4.4-11.0) 03/24/23 10:14 RBC 5.07 M/mm3 (4.2-5.4) 03/24/23 10:14 Hgb 14.3 g/dL (12.0-15.0) 03/24/23 10:14 Hct 43.1 % (37-47) 03/24/23 10:14 Plt Count 399 K/mm3 (150-450) 03/24/23 10:14 CHEMISTRY Potassium 3.8 mmol/L (3.5-5.1) 03/24/23 10:14 Sodium 138 mmol/L (136-145) 03/24/23 10:14 BUN 13 mg/dL (7-18) 03/24/23 10:14 Creatinine 0.76 mg/dL (0.55-1.02) 03/24/23 10:14 Glucose 100 mg/dL (74-106) 03/24/23 10:14 TSH 2.17 uIU/mL (0.358-3.74) 03/24/23 10:14 COAG Pre-Assessment Diagnosis/Proposed Procedure Planned Operative Procedure(s): COLONOSCOPY-OA Anesthesia History 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 When Was Last Pacemaker Check QUESTION #4 FULL TEXT: You/Your Family Experience fever (hyperthermia) with Anesthesia Last Oral Intake Last Oral intake: Last Oral Intake NPO since 22:40 11/27/23 08:26 Meds taken in AM with sips of Yes 11/27/23 08:26 water? 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 cut out worker Female Yes 11/22/23 10:47 HX of Motion Sickness No 11/22/23 10:47 HX of N/V After Surgery No 11/22/23 10:47 Non-Smoker Yes 11/22/23 10:47 Duration of Surgery greater No 11/22/23 10:47 than 60 minutes Number of Risk Factors 2 11/22/23 10:47 PONV Score Moderate Risk 11/22/23 10:47 Height & Weight Height & Weight: Anesthesia: Height & Weight Height 5 ft 1 in 11/27/23 08:26 Weight: 67 kg 11/27/23 08:26 Body Mass Index (BMI) 27.8 11/27/23 08:26 Respiratory Assessment Respiratory Assessment - vamp cut out worker: Respiratory Tract Infection Hx - vamp cut out worker Hx Respiratory Tract Infection No 11/22/23 10:47 STOP Sleep Apnea STOP Sleep Apnea - vamp cut out worker: STOP Sleep Apnea - vamp cut out worker Hx Hypertension Yes: NO MEDS PRESENTLY, PCP 11/22/23 10:47 AWARE Hx Sleep Apnea No 11/22/23 10:47 CPAP No: NA 11/22/23 10:47 BIPAP Do you snore loudly (louder Yes 11/22/23 10:47 than talking or can be heard Do you often feel tired/ No 11/22/23 10:47 fatigued/ sleepy during daytime? Has anyone observed you stop No 11/22/23 10:47 breathing during sleep? STOP Results Positive 11/22/23 10:47 QUESTION #5 FULL TEXT : Do you snore loudly (louder than talking or can be heard through closed doors)? 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 Specify any problems Hx of Preganancy in last 3 No 11/22/23 10:47 Months Nurse Filling Out Transfusion VCHRISTIN 11/22/23 10:47 & Questions: Date: 11/22/23 11/22/23 10:47 Time: 10:48 11/22/23 10:47 Patient unable to answer at this time (ie. confused, unrespo /Reproduction History /Reproductive History - vamp cut out worker: /Reproductive Hx- vamp cut out worker Hx Now No 11/22/23 10:47 Gestational Age (in weeks): EDC: Hx Hx Para Hx Section SAB No 11/22/23 10:47 PFS Medical History Wears glasses Gastric reflux Family history of rectal cancer Personal history of colonic polyps Impacted cerumen of both ears Cancer Post-menopausal Heartburn Non-smoker Family history of colon cancer in father Hemorrhoids Anxiety Hypertension Home Medications ?Medication ?Instructions ?Recorded ?Last Taken ?Type lorazepam 1 mg tablet (Ativan) 1 mg PO ONCE #1 TAB 09/15/23 11/27/23 07:00 Rx loratadine 10 mg tablet (Claritin) 10 mg PO DAILY PRN allergy symptoms 10/10/23 Unknown History multivitamin 1 tab PO DAILY 10/10/23 Unknown History Allergy/AdvReac Type Severity Reaction Status Date / Time No Known Allergies Allergy Verified 11/22/23 10:41 Family History Mother High blood cholesterol Cancer Father Kidney disease Diabetes Cancer skin cancer Colon cancer Rectal, at 60yrs Surgical History History of hysteroscopy Hx of colonoscopy History of esophagogastroduodenoscopy (EGD) Hx of wisdom tooth extraction Hx of prior ablation treatment Social History household members: spouse current occupational status: employed Smoking Status: Never smoker second hand exposure: No alcohol intake: never substance use type: does not use caffeine: Yes what type of physical activity do you participate in: walking frequency: 1-2 times per week Review of Systems (Anesthesia) ROS Narrative System reviewed and no additional complaints, except as documented.
[2023-11-27] MEDS: Lactated Ringers 1,000 ML 15 ML IV (08:47)
--- NOTE | 2023-11-27 08:56 | HP.PCM_ITS ---
[facility] - General General Date of Service: 11/27/23 HPI Narrative ARACELI CLEARY, is a 58 F who presents for colonoscopy due to history of colon polyps. Last colonoscopy was 09/08/2020 patient tubular adenoma at that time. Patient's father was also diagnosed with metastatic rectal cancer in his later 60s. Patient has bowel movements daily denies any blood. Patient denies any chronic abdominal pain/nausea/vomiting/reflux. [facility] Medical History Wears glasses Gastric reflux Family history of rectal cancer Personal history of colonic polyps Impacted cerumen of both ears Cancer Post-menopausal Heartburn Non-smoker Family history of colon cancer in father Hemorrhoids Anxiety Hypertension Home Medications ?Medication ?Instructions ?Recorded ?Last Taken ?Type lorazepam 1 mg tablet (Ativan) 1 mg PO ONCE #1 TAB 09/15/23 11/27/23 07:00 Rx loratadine 10 mg tablet (Claritin) 10 mg PO DAILY PRN allergy symptoms 10/10/23 Unknown History multivitamin 1 tab PO DAILY 10/10/23 Unknown History Allergy/AdvReac Type Severity Reaction Status Date / Time No Known Allergies Allergy Verified 11/22/23 10:41 Family History Mother High blood cholesterol Cancer Father Kidney disease Diabetes Cancer skin cancer Colon cancer Rectal, at 60yrs Surgical History History of hysteroscopy Hx of colonoscopy History of esophagogastroduodenoscopy (EGD) Hx of wisdom tooth extraction Hx of prior ablation treatment Social History household members: spouse current occupational status: employed Smoking Status: Never smoker second hand exposure: No alcohol intake: never substance use type: does not use caffeine: Yes what type of physical activity do you participate in: walking frequency: 1-2 times per week Past Medical/Surgical History Planned Operation Planned Operative Procedure(s): COLONOSCOPY-OA S.O.S: No Previous Hospitalizations/Surgeries HX Hospitalizations: No HX of Surgeries: colonoscopy x2 LAST 12/21/2016 egd Any Problems With Anesthesia: No You/Your Family Experience Fever (Hyperthermia) With Anes: No Cholinesterase deficiency: No Cardiovascular Hx Chest Pain within Last 2 months: No Hx of Irregular Heartbeat and/or Afib: No Hx Heart Attack: No Hx Congestive Heart Failure: No Hx Rheumatic Fever: No Hx Hypertension: Yes (NO MEDS PRESENTLY, PCP AWARE) Hx Internal Defibrillator: No Hx Pacemaker: No Hx Cardiac Catheterization: No Hx Cardiac Surgery/Stents/Etc.: No Hx Stress Test: No Hx Pain in Legs when Walking/Leg Cramps: No Respiratory Chronic Cough: No HX of Shortness of Breath: No Hoarseness: No Hx Chronic Obstructive Pulmonary Disease (COPD): No Hx Asthma: No Hx Emphysema: No Hx Sleep Apnea: No CPAP: No (NA) Hx Respiratory Tract Infection/Cold (presently): No Do You Snore Loudly (louder than talking or can be heard): Yes Do You Often Feel Tired/ Fatigued/ Sleepy Dring Daytime?: No Has Anyone Observed You Stop Breathing During Sleep?: No Result (for STOP score): Positive Hx Smoking: No Smoking Status: Never smoker Gastrointestinal Controlled With Meds: No Hx Gastrointestinal Disorders: Yes (ibs) Hx Gastrointestinal Bleed: No Hx Ulcer: No Hx Hiatal Hernia: No Difficulty Chewing/Swallowing: No Special diet followed at home: No Hx Unplanned Weight Loss of 20#: No HX Unplanned Weight Gain of 20#: No Neurological Hx Seizures: No HX Syncope/Blackout Spells/Unconsciousness: No Hx Transient Ischemic Attacks (TIA): No Hx Multiple Sclerosis: No Hx Parkinson's Disease: No Hx Head/Neck Injury: No Hx Headaches: No Hx Back Injury/Pain: No Recent Onset of Speech Difficulty: No Restless Legs: No Does patient have nerve stimulator: No Blood Disorder Hx Leukemia: No Bleeding Tendencies: No Hx Deep Vein Thrombosis: No Hx High Cholesterol: Yes (borderline) Blood Transmitted Disease: No Hx Hepatitis: No Hx Cirrhosis: No Hx Anemia: No Hx Blood Disorders: No Reproduction : No Is Patient Lactating: No Hx Hysterectomy: No Hx Tubal Ligation: No Are You Post Menopause: Yes Genitourinary Hx Renal Disease: No Musculoskeletal Hx Arthritis: No Hx Rheumatoid Arthritis: No Hx Gout: No Recent Onset of an Orthopedic Problem: No Endocrine Hx Diabetes: No Thyroid Disease: No Hx Steroid Therapy: No Psycho/Social Hx Substance Use: No Hx Alcohol Use: No Hx Anxiety: No Hx Depression: No Mental Illness: No Hx Dementia: No Miscellaneous Hx Cancer: No Recent Exposure to Contagious Disease: No Hx of C-Diff: No Any Loose Teeth: No Allergies No Known Allergies Allergy (Verified 11/22/23 10:41) Discharge Is Pt Admitted From a Detention, or a Intermediate: No After D/C, Where Do you Plan to Go: Return Home Vital Signs Vital Signs Vital Signs: 11/27/23 08:26 11/27/23 08:26 11/27/23 08:41 Temperature 98.5 F 98.5 F Temperature Source Temporal Pulse Rate 151 H 151 H Respiratory Rate 16 16 Respiratory Pattern Normal Blood Pressure 142/77 H 142/77 H Blood Pressure Mean 98 Blood Pressure Source Monitor Blood Pressure Position Semi-Fowlers Blood Pressure Location Left Arm Pulse Ox 100 100 Oxygen Delivery Method Room Air Weight Weight: 147 lb 11.355 oz Body Mass Index (BMI) 27.8 Physical Exam Const alert, oriented x3 and no apparent distress HEENT normocephalic and head/scalp atraumatic Resp normal respiratory effort Cardio regular rate GI soft to palpation and non-tender; Negative for non-distended Palpation: Negative for guarding Extremity no clubbing, cyanosis or edema Skin no rashes or lesions noted Neuro CN's II-XII intact bilaterally Psych mental status grossly normal Assessment & Plan Assessment/Plan (1) Hx of adenomatous colonic polyps: Surgery Risks - Colonoscopy I discussed with the patient the risks of the procedure: Yes Risks Include but are not Limited To: Risks include but are not limited to: Bleeding, perforation requiring further surgery, inability to complete colonoscopy requiring barium enema.
--- NOTE | 2023-11-27 09:15 | COLBX_PTH ---
PATIENT: ARACELI CLEARY LOC: EN U#:[id number] AGE/SX: 58/F ROOM: RE11/27/[address]: Dr. Nelda Lance MD : 1965 BED: DIS: 11/27/2023 SPEC #: [id number] RECD: 11/27/23 13:35 STATUS: TIRSO LUIGI #: [id number] VONNIE: 11/27/23 09:[address]: Nelda Lance DEPT: SURGICAL PATHOLOGY RECD BY: Erum Steinberg ENTERED: 11/27/23 14:03 SP TYPE: COLON BX OTHR DR: Camille Brenner MD Tissues: Sigmoid colon biopsy Procedures: Surgery Specimen Level IV HEADER OPERATION: Colonoscopy with biopsy PRE-OP DIAGNOSIS: History of adenomatous colonic polyps TISSUE SUBMITTED: Sigmoid polyp biopsy MICROSCOPIC DIAGNOSIS Sigmoid polyp, biopsy: Tubular adenoma. 11/28/2023 MICROSCOPIC DESCRIPTION Slides are reviewed. GROSS DESCRIPTION Received in fixative is one container labeled with the patient's name and designated Sigmoid polyp biopsy. The specimen consists of one irregular fragment of light foley soft tissue that measures 0.3 x 0.2 x 0.1 cm. The specimen is totally submitted in one cassette. 11/27/2023 TC:1 CPT:32273
--- NOTE | 2023-11-27 09:46 | OP.CCLET_ITS ---
11/27/2023 Camille Brenner Md Re : Colonoscopy procedure for Faith Pereira Dear Jordin This procedure was performed on Monday, November 27, 2023. My impressions and recommendations are as follows: Impressions : - Hemorrhoids found on perianal exam. - Non-bleeding external and internal hemorrhoids. - One less than 5 mm polyp in the sigmoid colon, removed with a cold biopsy forceps. Resected and retrieved. - The examination was otherwise normal. - Diverticulosis in the sigmoid colon. Recommendations : - Discharge patient to home. - Resume previous diet. - Continue present medications. - Await pathology results. - Repeat colonoscopy in 3 years for surveillance based on pathology results. My findings are described in the full procedure note, which is enclosed. If I can be of further assistance, please feel free to contact me at Doctor phone number(s): , Work: . Sincerely, MD Nelda Swartz MD 11/27/2023 9:45:54 AM This report has been signed electronically.
--- NOTE | 2023-11-27 09:46 | OP.COLON_ITS ---
Patient Name: Faith Pereira Procedure Date: 11/27/2023 9:02 AM Date of : 1965 Age: 58 Procedure: Colonoscopy Indications: High risk colon cancer surveillance: Personal history of adenoma less than 10 mm in size, Family history of rectal cancer in a first-degree relative before age 60 years Providers: Nelda Lance MD Referring MD: Nelda Lance MD Medicines: Monitored Anesthesia Care Patient Profile: This is a 58 year old female. Last Colonoscopy: August 2020. Complications: No immediate complications. Procedure: Pre-Anesthesia Assessment: - Prior to the procedure, a History and Physical was performed, and patient medications and allergies were reviewed. The patient's tolerance of previous anesthesia was also reviewed. The risks and benefits of the procedure and the sedation options and risks were discussed with the patient. All questions were answered, and informed consent was obtained. Prior Anticoagulants: The patient has taken no anticoagulant or antiplatelet agents. ASA Grade Assessment: Per anesthesia. After reviewing the risks and benefits, the patient was deemed in satisfactory condition to undergo the procedure. After I obtained informed consent, the scope was passed under direct vision. Throughout the procedure, the patient's blood pressure, pulse, and oxygen saturations were monitored continuously. The Colonoscope was introduced through the anus and advanced to the cecum, identified by the appendiceal orifice, ileocecal valve and palpation. The colonoscopy was performed without difficulty. The patient tolerated the procedure well. The quality of the bowel preparation was good. Scope In: 9:14:56 AM Scope Withdrawal Time 0 hours 10 minutes 27 seconds Scope Out: 9:33:53 AM Total Procedure Duration Time 0 hours 18 minutes 57 seconds Findings: Hemorrhoids were found on perianal exam. Non-bleeding external and internal hemorrhoids were found. The hemorrhoids were small and Grade II (internal hemorrhoids that prolapse but reduce spontaneously). A less than 5 mm polyp was found in the sigmoid colon. The polyp was sessile. The polyp was removed with a cold biopsy forceps. Resection and retrieval were complete. The exam was otherwise without abnormality. A few small-mouthed diverticula were found in the sigmoid colon. Impression: - Hemorrhoids found on perianal exam. - Non-bleeding external and internal hemorrhoids. - One less than 5 mm polyp in the sigmoid colon, removed with a cold biopsy forceps. Resected and retrieved. - The examination was otherwise normal. - Diverticulosis in the sigmoid colon. Recommendation: - Discharge patient to home. - Resume previous diet. - Continue present medications. - Await pathology results. - Repeat colonoscopy in 3 years for surveillance based on pathology results. Procedure Code(s): --- Professional --- 40462, PT, Colonoscopy, flexible; with biopsy, single or multiple Diagnosis Code(s): --- Professional --- Z86.010, Personal history of colonic polyps K64.1, Second degree hemorrhoids D12.5, Benign neoplasm of sigmoid colon Z80.0, Family history of malignant neoplasm of digestive organs CPT copyright 2021 [employer]. All rights reserved. The codes documented in this report are preliminary and upon baker second review may be revised to meet current compliance requirements. MD Nelda Swartz MD 11/27/2023 9:45:54 AM This report has been signed electronically. Number of Addenda: 0 Note Initiated On: 11/27/2023 9:02 AM
--- NOTE | 2023-11-27 09:46 | PCM.POST.ANE ---
Anesthesia: Postop Eval I Current Vital Signs Temperature: 97.3 F Pulse Rate: 90 Blood Pressure: 87/65 Respiratory Rate: 14 Pulse Ox: 97 Oxygen Delivery Method: Nasal Cannula Oxygen Flow Rate (L/min): 5 Assessment Airway patent: Yes Spontaneous unlabored respirations: Yes Mental status: Asleep (with PHILIPPE, airway patent when repositioned to LLD, capnography monitoring attached) nausea: No Vomiting: No Anesthesia Complication: No Fluid Hydration Crystalloid volume administer (ml): 800 Total IV fluid infused: 800 Progress Note Anesthesia document: Postop Eval 1 completed: Yes
--- NOTE | 2023-11-27 11:54 | PCM.POSTANE2 ---
Anesthesia Postop Eval I Sum Postop Eval Completion status Anesthesia document: Postop Eval 1 completed: Yes Anesthesia Postop Eval I Summary Anesthesia Postop Eval I Summary: Anesthesia Postop Eval I: Assessment Summary Airway patent Yes 11/27/23 09:50 [email or web address] Spontaneous unlabored Yes 11/27/23 09:50 [email or web address] respirations Mental status Asleep - with PHILIPPE, 11/27/23 09:50 [email or web address] airway patent when repositioned to D, capnography monitoring attached nausea No 11/27/23 09:50 [email or web address] Vomiting No 11/27/23 09:50 [email or web address] Anesthesia Postop Eval I: Fluid Summary Crystalloid volume administer 800 11/27/23 09:50 [email or web address] (ml) Colloids volume administered ( ml) Blood Product volume administered (ml) Total IV fluid infused 800 11/27/23 09:50 [email or web address] Anesthesia Postop Eval I: Summary Notes Anesthesia Complication No 11/27/23 09:50 [email or web address] Anesthesia Complication Comment: Post-operative progress note Anesthesia: Postop Eval II Evaluation Mental status: Awake Pain Level: 0 nausea: No Vomiting: No
== END 2023-11-27 11:09 | disposition home or self-care (01) ==
LOC: EN 08:15 → AC 08:16
PROVIDERS: PCP Family Medicine; Referring Provider Surgery; Visit Provider Surgery
PROC: 0DJD8ZZ Inspection of Lower Intestinal Tract, Via Natural or Artificial Opening Endoscopic (ICD-10-PCS; CPT 45378; principal; 2023-11-27 09:10)
DX: Z12.11 Encounter for screening for malignant neoplasm of colon (principal); K57.30 Diverticulosis of large intestine without perforation or abscess without bleeding; I10 Essential (primary) hypertension; Z80.0 Family history of malignant neoplasm of digestive organs; Z86.0100 Personal history of colon polyps, unspecified; F41.9 Anxiety disorder, unspecified; Z79.899 Other long term (current) drug therapy; K64.1 Second degree hemorrhoids; K63.5 Polyp of colon
CPT/HCPCS: 45380; 88305; 93005; J7120; A4216; J2405

== ENCOUNTER → 2024-06-11 | Outpatient (CLI) | payer BC, SELFPAY ==
--- NOTE | 2024-06-11 13:45 | BI_ITS ---
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 BREAST CANCER RISK ASSESSMENT: Not assessed. TECHNIQUE: Bilateral screening digital breast tomosynthesis with 2D and 3D images. Computer aided detection. COMPARISON: Prior exam(s) dated May 26, 2023.. FINDINGS: TISSUE DENSITY: The breast tissue is composed of scattered area of fibroglandular density. Bilateral Breast Mammographic Findings: No significant masses, calcifications or other abnormalities are identified. No suspicious masses, areas of developing architectural distortion, or suspicious calcifications. There has been no significant interval change. BI/SCRN MAMM (CAD)W/CARIE BILAT IMPRESSION: OVERALL FINAL ASSESSMENT: BIRADS 1 NEGATIVE RECOMMENDATION: Routine annual follow-up in 1 Year A letter with findings and recommendations will be mailed to the patient. Reading Location: [place] [id number]
== END | disposition home or self-care (01) ==
LOC: OPBI 13:39
PROVIDERS: PCP Family Medicine; Referring Provider Family Medicine; Visit Provider Family Medicine
DX: Z12.31 Encounter for screening mammogram for malignant neoplasm of breast (principal)
CPT/HCPCS: 77063; 77067

== ENCOUNTER → 2024-12-30 | Outpatient (CLI) | payer BC, SELFPAY ==
[2024-12-30 10:34] LABS: Hematocrit 45.8 % (37-47); Hemoglobin 15.2 g/dL (12.0-15.0); Immature Granulocytes Count 0.010 X10^3/uL (0.0-0.0); Mean Corp Hgb Conc 33.2 g/dL (32-36); Mean Corpuscular Volume 85.8 fL (81-99); Mean Platelet Vol. 10.7 fl (6.2-12.0); NRBC Flagged by Analyzer 0 % (0-5); Platelet Count 395 K/mm3 (150-450); RBC Distribution Width CV 13.3 % (11.6-14.6); RBC Distribution Width SD 41.4 fl (35.1-43.9); Red Blood Count 5.34 M/mm3 (4.2-5.4); White Blood Count 7.2 K/mm3 (4.4-11.0)
[2024-12-30 11:04] LABS: AST(SGOT) 48 U/L (<=31); Alanine Aminotransfer ALT/SGPT 81 U/L (<=34); Albumin, Serum 4.9 g/dL (3.4-4.8); Alkaline Phosphatase 113 U/L (35-104); Anion Gap 15 (5-15); BUN 17 mg/dL (4-19); BUN/Creat Ratio 19.7 RATIO (10-20); Calcium,Total 9.8 mg/dL (7.6-11.0); Carbon Dioxide 21.2 mmol/L (21.0-32.0); Chloride 104 mmol/L (98-108); Cholesterol 256 mg/dL (<=200); Globulin 3.4 g/dL (2.2-4.2); Glucose 108 mg/dL (70-99); Low Density Lipoprotein Calc. 175 mg/dL; Potassium 3.9 mmol/L (3.3-5.1); Triglycerides 155 mg/dL; Very Low Density Lipoprotein 31 mg/dL (5-40); cholesterol:hdl ratio screen 4.85
== END | disposition home or self-care (01) ==
LOC: MTLAB 08:36
PROVIDERS: PCP Family Medicine; Referring Provider Family Medicine; Visit Provider Family Medicine
DX: E78.00 Pure hypercholesterolemia, unspecified (principal); Z13.228 Encounter for screening for other metabolic disorders; Z13.1 Encounter for screening for diabetes mellitus; Z13.29 Encounter for screening for other suspected endocrine disorder
CPT/HCPCS: 36415; 80053; 80061; 83036; 84443; 85025

== ENCOUNTER → 2025-01-06 | Outpatient (CLI) | payer BC, SELFPAY ==
--- NOTE | 2025-01-06 07:19 | US_ITS ---
PROCEDURE: LIVER 01/06/2025 REASON FOR EXAM: ELEVATED LIVER ENZYMES TECHNIQUE: Procedure Code: USLI Modality: US Procedure: LIVER COMPARISON: None FINDINGS: Liver: Diffusely echogenic suggesting fatty infiltration. Gallbladder: No stones, sludge, wall thickening or tenderness. Common bile duct: Normal measuring 4 mm . Pancreas: Normal Other: Visualized portions of the right kidney are unremarkable. No right upper quadrant ascites. US/Liver IMPRESSION: Fatty infiltration of the liver. No evidence of hepatomegaly. Reading Location: [id number]
--- OUTSIDE RECORDS SUMMARY | 2025-01-06 07:30 | XMS RPT_ITS | CCD ---
Author Organization [facility] Care Team Providers Care Retail Analytics Manager Name Role Phone Philomena KRUEGER, Willy aRvi Unavailable [phone] Unavailable Unavailable Jordin KRUEGER, Camille Primary Care Provider Jordin KRUEGER, Camille Attending Provider Jordin KRUEGER, Camille Referring Provider Camille Brenner Attending Unavailable Jordin, Camille Referring Unavailable Jordin, Chalon Primary Care Unavailable Jordin, Sandraon Attending Unavailable Jordin, Chalon Referring Unavailable Jordin, Chalon Primary Care Unavailable Jordin, Sandraon Attending Unavailable Jordin, Chalon Referring Unavailable Jordin, Chalon Primary Care Unavailable Medications Current Medications Medication Drug Class(es) Dates Sig (Normalized) Sig (Original) loratadine 10 mg oral tablet (4 sources) Start: 07-07-2022 End: 10-10-2023 take 1 tablet by mouth once daily as needed Loratadine (Claritin) 10 mg tablet Active 10 mg PO DAILY as needed for allergy symptoms October 10, 2023 11:26am LORazepam 1 mg oral tablet (5 sources) Benzodiazepine Start: 09-15-2023 take 1 tablet by mouth once Lorazepam (Ativan) 1 mg tablet Active 1 mg PO ONCE September 15, 2023 12:00am Take 1 hour prior to arrival for procedure Start: 07-22-2020 End: 07-07-2022 Lorazepam (Ativan) 1 mg tabl et Discontinued 1 mg PO .x1 as needed for anxiety July 22, 2020 12:00am July 07, 2022 5:17pm Take 30 minutes before presenting for colonoscopy Multivitamin tablet (1 source) Start: 10-10-2023 Multivitamin t ablet Active 1 {tbl} PO DAILY October 10, 2023 12:00am Completed/Discontinued Medications Medication Drug Class(es) Dates Sig (Normalized) Sig (Original) cyclobenzaprine hydrochloride 5 mg oral tablet (4 sources) Muscle Relaxant Start: 07-22-2020 End: 07-07-2022 take 1 tablet by mouth three times daily as needed for muscle spasms Cyclobenzaprine 5 mg tablet Discontinued 5 mg PO THREE TIMES A DAY as needed for Spasms July 22, 2020 12:00am July 07, 2022 5:17pm hydrOXYzine pamoate 25 mg oral capsule (8 sources) Antihistamine Start: 07-22-2020 End: 07-07-2022 take 1 capsule by mouth three to four times daily as needed for anxiety Hydroxyzine Pamoate 25 mg capsule Discontinued 25 mg PO 3 to 4 times per day as needed for Anxiety July 22, 2020 12:00am July 07, 2022 5:17pm Start: 06-08-2020 End: 07-22-2020 take 1 capsule by mouth four times daily as needed for anxiety hydrOXYzine pamoate capsule Discontinued 25 mg PO 4 TIMES DAILY as needed for Anxiety June 08, 2020 12:00am July 22, 2020 3:17pm metoprolol tartrate 50 mg oral tablet (4 sources) beta-Adrenergic Ned Start: 06-01-2020 End: 07-07-2022 take 1 tablet by mouth once daily Metoprolol Tartrate 50 MG tablet Discontinued 50 mg PO DAILY June 01, 2020 12:00am July 07, 2022 5:17pm Multivitamin 1 EACH tablet (1 source) Start: 06-01-2020 End: 07-07-2022 Multivitamin 1 EACH tablet Discontinued 1 NMA PO DAILY June 01, 2020 12:00am July 07, 2022 5:17pm Multivitamin preparation (3 sources) Start: 06-01-2020 End: 07-07-2022 Multivitamin Discontinued 1 EACH PO DAILY June 01, 2020 12:00am July 07, 2022 5:17pm Start: 06-01-2020 End: 07-07-2022 Multivitamin Discontinued 1 EACH PO DAILY May 31, 2020 11:00pm July 07, 2022 4:17pm Start: 06-01-2020 Multivitamin A ctive 1 EACH PO DAILY May 31, 2020 11:00pm PEG 0796-YNG-SCNCB-NACL-NASULF (4 sources) Osmotic Laxative Start: 11-22-2016 GOLYTELY 227.1 GM SOLR Take as directed PEG 4081-MWG-LGATL-NACL-NASULF [id number] Willy Quach MD ubidecarenone 100 mg / vitamin e 5 unt oral capsule (4 sources) Start: 06-01-2020 End: 07-07-2022 take 1 capsule by mouth once daily Coenzyme C35-Ylhdpza E 1 EACH capsule Discontinued 1 NMA PO DAILY June 01, 2020 12:00am July 07, 2022 5:17pm Start: 06-01-2020 End: 07-07-2022 Coenzyme S77-Wnwwgmp E Disco ntinued 1 EACH PO DAILY June 01, 2020 12:00am July 07, 2022 5:17pm Problems Active Problems Problem Classification Problem Date Documented Date Episodic/Chronic Anxiety disorders (4 sources) Anxiety; Translations: [Anxiety disorder, unspecified] 07-22-2020 Chronic Disorders of lipid metabolism (1 source) Pure hypercholesterolemia, unspecified; Translations: [Pure hypercholesterolemia, unspecified] Onset: 12-30-2024 Chronic Disorders of teeth and jaw (4 sources) Loss of teeth due to extraction; Translations: [Partial loss of teeth, unspecified cause, unspecified class] 07-22-2020 Episodic Essential hypertension (4 sources) Hypertensive disorder; Translations: [Essential (primary) hypertension] 09-11-2020 Chronic Comment on above: PCP AWARE PT OFF OF MEDS Hemorrhoids (4 sources) Hemorrhoids; Translations: [Unspecified hemorrhoids] 07-22-2020 Episodic Other and unspecified benign neoplasm (4 sources) History of adenomatous polyp of colon; Translations: [Personal history of colonic polyps] 07-22-2020 Episodic Other ear and sense organ disorders (3 sources) Impacted cerumen; Translations: [Impacted cerumen, bilateral] 07-07-2022 Episodic Other liver diseases (1 source) Abnormal levels of other serum enzymes; Translations: [Abnormal levels of other serum enzymes] Onset: 01-01-2025 Episodic Other screening for suspected conditions (not mental disorders or infectious disease) (5 sources) Patient encounter status; Translations: [Encounter for screening for malignant neoplasm of colon] Onset: 06-17-2024 10-10-2023 Episodic Residual codes; unclassified (4 sources) Past history of procedure; Translations: [Other specified postprocedural states] 07-22-2020 Episodic Residual codes; unclassified (4 sources) History of colonoscopy; Translations: [Other specified postprocedural states] 07-22-2020 Episodic Comment on above: 12/21/2016, 09/08/2020 Unclassified (8 sources) Family history of cancer of colon; Translations: [Family history of malignant neoplasm of digestive organs] Onset: 11-22-2016 11-22-2016 Episodic Past or Other Problems Problem Classification Problem Date Documented Da te Episodic/Chronic Other and unspecified benign neoplasm (2 sources) Polyp of colon; Translations: [Polyp of colon] Onset: 01-03-2017 01-03-2017 Episodic Results Test Name Value Interpretation Reference Range Facility CBC W/Diff, Automatedon 11- Absolute Lymph 2.60 X10 3/uL Normal 0.83-4.[address] [facility] Comment on above: Performed By: #### L 100.0100, L501.9985, L500.4100, L500.4050, L501.9520 #### [facility] [address] [place], [address] Absolute Neut 3.7 X10 3/uL Normal 2.0-7.[address] [facility] Comment on above: Performed By: #### L 100.0100, L501.9985, L500.4100, L500.4050, L501.9520 #### [facility] [address] [place], [address] Basophils/100 WBC (Bld) 0.6 % Normal 0-[address] [facility] Comment on above: Performed By: #### L 100.0100, L501.9985, L500.4100, L500.4050, L501.9520 #### [facility] [address] [place], [address] Eosinophils/100 WBC (Bld) 4.2 % Normal 0-[address] [facility] Comment on above: Performed By: #### L 100.0100, L501.9985, L500.4100, L500.4050, L501.9520 #### [facility] [address] [place], [address] Erythrocyte distribution width (RBC) [Ratio] 13.3 % Normal 11.6-14.[address] [facility] Comment on above: Performed By: #### L 100.0100, L501.9985, L500.4100, L500.4050, L501.9520 #### [facility] [address] [place], [address] Hematocrit (Bld) [Volume fraction] 45.8 % Normal 37-[address] [facility] Comment on above: Performed By: #### L 100.0100, L501.9985, L500.4100, L500.4050, L501.9520 #### [facility] [address] [place], [address] Hemoglobin (Bld) [Mass/Vol] 15.2 g/dL High 12.0-15.[address] [facility] Comment on above: Performed By: #### L 100.0100, L501.9985, L500.4100, L500.4050, L501.9520 #### [facility] [address] [place], [address] IG% 0.100 Normal 0.0-0.[address] [facility] Comment on above: Result Comment: IG% - Immature Granulocytes (promyelocytes, myelocytes and metamyelocytes) > 1% indicates that a LEFT SHIFT is Present. Performed By: #### L 100.0100, L501.9985, L500.4100, L500.4050, L501.9520 #### [facility] [address] [place], [address] Lymphocytes/100 WBC (Bld) 36.2 % Normal 19-[address] [facility] Comment on above: Performed By: #### L 100.0100, L501.9985, L500.4100, L500.4050, L501.9520 #### [facility] [address] [place], [address] MCH (RBC) [Entitic mass] 28.5 pg Normal 27.0-32.[address] [facility] Comment on above: Performed By: #### L 100.0100, L501.9985, L500.4100, L500.4050, L501.9520 #### [facility] [address] [place], [address] MCHC (RBC) [Mass/Vol] 33.2 g/dL Normal 32-36 [facility] Comment on above: Performed By: #### L 100.0100, L501.9985, L500.4100, L500.4050, L501.9520 #### [facility] [address] [place], [address] MCV (RBC) [Entitic vol] 85.8 fL Normal 81-[address] [facility] Comment on above: Performed By: #### L 100.0100, L501.9985, L500.4100, L500.4050, L501.9520 #### [facility] [address] [place], [address] Monocytes/100 WBC (Bld) 7.8 % Normal 0-[address] [facility] Comment on above: Performed By: #### L 100.0100, L501.9985, L500.4100, L500.4050, L501.9520 #### [facility] [address] [place], [address] Neutrophils/100 WBC (Bld) 51.1 % Normal 47-[address] [facility] Comment on above: Performed By: #### L 100.0100, L501.9985, L500.4100, L500.4050, L501.9520 #### [facility] [address] [place], [address] Nucleated RBC (Bld) [#/Vol] 0 10*3/uL Normal 0-[address] [facility] Comment on above: Performed By: #### L 100.0100, L501.9985, L500.4100, L500.4050, L501.9520 #### [facility] [address] [place], [address] Platelet mean volume (Bld) [Entitic vol] 10.7 fL Normal 6.2-12.[address] [facility] Comment on above: Performed By: #### L 100.0100, L501.9985, L500.4100, L500.4050, L501.9520 #### [facility] [address] [place], [address] Platelets (Bld) [#/Vol] 395 10*3/uL Normal 150-[address] [facility] Comment on above: Performed By: #### L 100.0100, L501.9985, L500.4100, L500.4050, L501.9520 #### [facility] [address] [place], [address] RBC (Bld) [#/Vol] 5.34 10*6/uL Normal 4.2-5.4 [facility] Comment on above: Performed By: #### L 100.0100, L501.9985, L500.4100, L500.4050, L501.9520 #### [facility] [address] [place], [address] RDW SD 41.4 fl Normal 35.1-43.[address] [facility] Comment on above: Performed By: #### L 100.0100, L501.9985, L500.4100, L500.4050, L501.9520 #### [facility] [address] [place], [address] WBC (Bld) [#/Vol] 7.2 10*3/uL Normal 4.4-11.0 [facility] Comment on above: Performed By: #### L 100.0100, L501.9985, L500.4100, L500.4050, L501.9520 #### [facility] [address] [place], [address] Comprehensive Metabolic Prof ilon 12-30-2024 Albumin [Mass/Vol] 4.9 g/dL High 3.4-4.8 [facility] Comment on above: Performed By: #### L 100.0100, L501.9985, L500.4100, L500.4050, L501.9520 #### [facility] [address] [place], [address] Albumin/Globulin [Mass ratio] 1.5 {ratio} Normal 0.9-2.[address] [facility] Comment on above: Performed By: #### L 100.0100, L501.9985, L500.4100, L500.4050, L501.9520 #### [facility] [address] [place], [address] ALK PHOS 113 U/L High 35-[address] [facility] Comment on above: Performed By: #### L 100.0100, L501.9985, L500.4100, L500.4050, L501.9520 #### [facility] [address] [place], [address] ALT [Catalytic activity/Vol] 81 U/L High <=[address] [facility] Comment on above: Performed By: #### L 100.0100, L501.9985, L500.4100, L500.4050, L501.9520 #### [facility] [address] [place], [address] AST [Catalytic activity/Vol] 48 U/L High <=[address] [facility] Comment on above: Performed By: #### L 100.0100, L501.9985, L500.4100, L500.4050, L501.9520 #### [facility] [address] [place], [address] Bilirubin [Mass/Vol] 0.71 mg/dL Normal 0.00-1.30 [facility] Comment on above: Performed By: #### L 100.0100, L501.9985, L500.4100, L500.4050, L501.9520 #### [facility] [address] [place], [address] BUN/CRE 19.7 RATIO Normal 10-[address] [facility] Comment on above: Performed By: #### L 100.0100, L501.9985, L500.4100, L500.4050, L501.9520 #### [facility] [address] [place], [address] Calcium [Mass/Vol] 9.8 mg/dL Normal 7.6-11.0 [facility] Comment on above: Performed By: #### L 100.0100, L501.9985, L500.4100, L500.4050, L501.9520 #### [facility] [address] [place], [address] Chloride [Moles/Vol] 104 mmol/L Normal 98-108 [facility] Comment on above: Performed By: #### L 100.0100, L501.9985, L500.4100, L500.4050, L501.9520 #### [facility] [address] [place], [address] CO2 [Moles/Vol] 21.2 mmol/L Normal 21.0-32.[address] [facility] Comment on above: Performed By: #### L 100.0100, L501.9985, L500.4100, L500.4050, L501.9520 #### [facility] [address] [place], [address] Creatinine [Mass/Vol] 0.84 mg/dL Normal 0.70-1.20 [facility] Comment on above: Performed By: #### L 100.0100, L501.9985, L500.4100, L500.4050, L501.9520 #### [facility] [address] [place], [address] GAP 15 Normal 5-[address] [facility] Comment on above: Performed By: #### L 100.0100, L501.9985, L500.4100, L500.4050, L501.9520 #### [facility] [address] [place], [address] GFR/1.73 sq M.predicted among non-blacks MDRD (S/P/Bld) [Vol rate/Area] 79 mL/min/{1.73_m2} Normal >[address] [facility] Comment on above: Result Comment: mL/m in/1.73m2 CKD-EPI Creatinine Equation (2020) Performed By: #### L 100.0100, L501.9985, L500.4100, L500.4050, L501.9520 #### [facility] [address] [place], [address] Globulin (S) [Mass/Vol] 3.4 g/dL Normal 2.2-4.[address] [facility] Comment on above: Performed By: #### L 100.0100, L501.9985, L500.4100, L500.4050, L501.9520 #### [facility] [address] [place], [address] Glucose [Mass/Vol] 108 mg/dL High 70-99 [facility] Comment on above: Performed By: #### L 100.0100, L501.9985, L500.4100, L500.4050, L501.9520 #### [facility] [address] [place], [address] Potassium [Moles/Vol] 3.9 mmol/L Normal 3.3-5.1 [facility] Comment on above: Performed By: #### L 100.0100, L501.9985, L500.4100, L500.4050, L501.9520 #### [facility] [address] [place], [address] Sodium [Moles/Vol] 140 mmol/L Normal 133-145 [facility] Comment on above: Performed By: #### L 100.0100, L501.9985, L500.4100, L500.4050, L501.9520 #### [facility] [address] [place], [address] T PROT 8.3 g/dL Normal 5.9-8.[address] [facility] Comment on above: Performed By: #### L 100.0100, L501.9985, L500.4100, L500.4050, L501.9520 #### [facility] [address] [place], [address] Urea nitrogen [Mass/Vol] 17 mg/dL Normal 4-[address] [facility] Comment on above: Performed By: #### L 100.0100, L501.9985, L500.4100, L500.4050, L501.9520 #### [facility] [address] [place], [address] Hemoglobin A1con 12-30-2024 HbA1c (Bld) [Mass fraction] 5.5 % Normal <=5.[address] [facility] Comment on above: Result Comment: Norm al < 5.7 % Prediabetic 5.7 - 6.4 % Diabetic >or= 6.5 % Please note range changes. Performed By: #### L 100.0100, L501.9985, L500.4100, L500.4050, L501.9520 #### [facility] [address] [place], [address] Lipid Profileon 12-30-2024 CHOL:HDL 4.[address] [facility] Comment on above: Performed By: #### L 100.0100, L501.9985, L500.4100, L500.4050, L501.9520 #### [facility] [address] [place], [address] Cholesterol [Mass/Vol] 256 mg/dL High <=200 [facility] Comment on above: Result Comment: Chol esterol level, Desirable <200 mg/dL Borderline high cholesterol 200-239 mg/dL High cholesterol >=240 mg/dL Recommendations of the NCEP Adult Treatment Panel for the following risk-cutoff thresholds for the [place] population. Performed By: #### L 100.0100, L501.9985, L500.4100, L500.4050, L501.9520 #### [facility] [address] [place], [address] Cholesterol in HDL [Mass/Vol] 53 mg/dL Normal [facility] Comment on above: Result Comment: Vidya onal Cholesterol Education Program (NCEP) guidelines: <40 mg/dL: Low HDL-cholesterol (major risk factor for CHD) >= 60 mg/dL: High HDL-cholesterol (negative risk factor for CHD) HDL-cholesterol is affected by a number of factors, e.g. smoking, exercise, hormones, sex and age. Performed By: #### L 100.0100, L501.9985, L500.4100, L500.4050, L501.9520 #### [facility] [address] [place], [address] Cholesterol in LDL [Mass/Vol] 175 mg/dL Normal [facility] Comment on above: Result Comment: Bord zcxvmn=695-116 mg/dL Higher Qfwv=141 mg/dL or greater Romo Equation 2020 for LDL-C Performed By: #### L 100.0100, L501.9985, L500.4100, L500.4050, L501.9520 #### [facility] [address] [place], [address] Cholesterol in VLDL [Mass/Vol] 31 mg/dL Normal 5-[address] [facility] Comment on above: Performed By: #### L 100.0100, L501.9985, L500.4100, L500.4050, L501.9520 #### [facility] [address] [place], [address] Triglyceride [Mass/Vol] 155 mg/dL Normal [facility] Comment on above: Result Comment: The drugs N-Acetylcysteine and Metamizole may falsely depress this assay. Normal range: <150 mg/dL Borderline High: 150-199 mg/dL High: 200-499 mg/dL Very High: >500 mg/dL Performed By: #### L 100.0100, L501.9985, L500.4100, L500.4050, L501.9520 #### [facility] [address] [place], [address] Thyroid Stim Hormone (TSH)on 12-30-2024 TSH 3.150 uIU/mL Normal 0.300-4.[address] [facility] Comment on above: Performed By: #### L 100.0100, L501.9985, L500.4100, L500.4050, L501.9520 #### [facility] [address] [place], [address] Breast imaging reportOrdered By: Andrei Smith on 06-11-2024 Study report [facility] Imaging Services [address] [place], [place] [id number] [phone] SCRN MAMM (CAD)W/CARIE BILAT MR#: [id number] Acct: [id number] Name: ARACELI CLEARY Rep #: [id number] : 1965 F 58 From: Tato Smith MD PCP: Dr. Camille Brenner MD Status: REG CL I Study:SCRN MAMM (CAD)W/CARIE BILAT Date of Exa m: 06/11/24 Exam# [id number] Ordering Dr: Bessy Brenner MD EXAM: SCRN MAMM (CAD)W/CARIE BILAT DATE: 06/11/2024 CLINICAL HISTORY: F, Age 58 y/o , SCREENING MAMMOGRAM No family history. BREAST CANCER RISK ASSESSMENT: Not assessed. TECHNIQUE: Bilateral screening digital breast tomosynthesis with 2D and 3D images. Computeraided detection. COMPARISON: Prior exam(s) dated May 26, 2023.. FINDINGS: TISSUE DENSITY: The breast tissue is composed of scattered area of fibroglandular density. Bilateral Breast Mammographic Findings: No significant masses, calcifications or other abnormalities are identified. No suspicious masses, areas of developing architectural distortion, or suspicious calcifications. There has been no significant interval change. BI/SCRN MAMM (CAD)W/CARIE BILAT IMPRESSION: OVERALL FINAL ASSESSMENT: BIRADS 1 NEGATIVE RECOMMENDATION: Routine annual follow-up in 1 Year A letter with findings and recommendations will be mailed to the patient. Reading Location: [place] [address] CC: Dr. Camille Brenner MD ~ Chemical Handler: Signed [facility] SCRN MAMM (CAD)W/CARIE BILATo n 06-11-2024 SCRN MAMM (CAD)W/CARIE BILAT [facility] Imaging Services [address] [place] [id number] SCRN MAMM (CAD)W/CARIE BILAT MR#: [id number] Acct: [id number] Name: ARACELI CLEARY Rep #: [id number] : 1965 F 58 From: Andrei small MD PCP: Dr. Camille Brenner MD Status: REG CLI Study: SCRN MAMM (CAD)W/CARIE BILAT Date of Exam: 05/22 04/16 Exam# [id number] Ordering Dr: Camille Brenner MD EXAM: SCRN MAMM (CAD)W/CARIE BILAT DATE: 06/11/2024 CLINICAL HISTORY: F, Age 58 y/o , SCREENING MAMMOGRAM No family history. BREAST CANCER RISK ASSESSMENT: Not assessed. TECHNIQUE: Bilateral screening digital breast tomosynthesis with 2D and 3D images. Computer aided detection. COMPARISON: Prior exam(s) dated May 26, 2023.. FINDINGS: TISSUE DENSITY: The breast tissue is composed of scattered area of fibroglandular density. Bilateral Breast Mammographic Findings: No significant masses, calcifications or other abnormalities are identified. No suspicious masses, areas of developing architectural distortion, or suspicious calcifications. There has been no significant interval change. BI/SCRN MAMM (CAD)W/CARIE BILAT IMPRESSION: OVERALL FINAL ASSESSMENT: BIRADS 1 NEGATIVE RECOMMENDATION: Routine annual follow-up in 1 Year A letter with findings and recommendations will be mailed to the patient. Reading Location: [place] [address] CC: Dr. Camille Brenner MD Chemical Handler: Signed Normal [facility] Basophil percentageOrdered B y: Sabine Arreaga on 03-24-2023 Bilirubin [Mass/Vol] 0.90 mg/dL 0.20-1.00 [facility] Comment on above: For patients on eltr ombopag therapy, use of Dimension [place] TBIL is not recommended. Chloride [Moles/Vol] 109 mmol/L 98-107 [facility] Cholesterol [Mass/Vol] 233 mg/dL <200 [facility] Comment on above: <200 mg/dL Desirable 200-240 mg/dL Borderline >240 mg/dL High Risk Glucose [Mass/Vol] 100 mg/dL 74-106 [facility] Comment on above: Fasting Glucose resu lt from 100 to 125 mg/dL suggests IMPAIRED HOMEOSTASIS per A.D.A. criteria. Hemoglobin (Bld) [Mass/Vol] 14.3 g/dL 12.0-15.[address] [facility] Potassium [Moles/Vol] 3.8 mmol/L 3.5-5.1 [facility] Protein [Mass/Vol] 8.1 g/dL 6.4-8.2 [facility] Sodium [Moles/Vol] 138 mmol/L 136-145 [facility] Triglyceride [Mass/Vol] 127 mg/dL <[address] [facility] Comment on above: The drugs N-Acetylcy steine and Metamizole may falsely depress this assay.Serum Triglycerides Reference Interval Normal <150 mg/dL Borderline high 150 - 199 mg/dL High 200 - 499 mg/dL Very High > or = 500 mg/dL WBC (Bld) [#/Vol] 7.2 10*3/uL 4.4-11.0 [facility] Determination of erythrocyte mean corpuscular volume (MCV)Ordered By: Sabine Arreaga on 03-24-2023 MCV (RBC) [Entitic vol] 85.0 fL 81-[address] [facility] Erythrocyte distribution wid th ratioOrdered By: Sabine Arreaga on 03-24-2023 Erythrocyte distribution width (RBC) [Ratio] 13.7 % 11.6-14.[address] [facility] Erythrocyte distribution wid th standard deviationOrdered By: Sabine Arreaga on 03-24-2023 Erythrocyte distribution width (RBC) [Entitic vol] 42.5 fL 35.1-43.[address] [facility] Hematocrit Auto (Bld) [Volum e fraction]Ordered By: Sabine Arreaga on 03-24-2023 Hematocrit (Bld) [Volume fraction] 43.1 % 37-[address] [facility] Laboratory - Chemistry and C hemistry - challengeOrdered By: Sabine Arreaga on 03-24-2023 Albumin/Globulin [Mass ratio] 1.1 {ratio} 0.9-2.[address] [facility] ALP [Catalytic activity/Vol] 119 U/L 45-[address] [facility] ALT [Catalytic activity/Vol] 52 U/L 13-[address] [facility] Cholesterol in HDL (Body fld) [Mass/Vol] 54 mg/dL >[address] [facility] Comment on above: The drugs N-Acetylcy steine and Metamizole may falsely depress this assay. Reference Range HDL <40 mg/dL Low HDL Cholesterol HDL >or= 60 mg/dL High HDL Cholesterol Cholesterol in LDL (Body fld) [Moles/Vol] 154 mg/dL 0-[address] [facility] Cholesterol in VLDL Calc [Moles/Vol] 25 mg/dL 5-[address] [facility] CO2 [Moles/Vol] 25.0 mmol/L 21.0-32.[address] [facility] Globulin (S) [Mass/Vol] 3.9 g/dL 2.2-4.[address] [facility] Urea nitrogen/Creatinine [Mass ratio] 17.1 mg/mg 10-[address] [facility] Laboratory - Hematology and Cell countsOrdered By: Sabine Arreaga on 03-24-2023 MCH (RBC) [Entitic mass] 28.2 pg 27.0-32.[address] [facility] MCHC (RBC) [Mass/Vol] 33.2 g/dL 32-36 [facility] Platelets (Bld) [#/Vol] 399 10*3/uL 150-[address] [facility] No Panel InformationOrdered By: Sabine Arreaga on 03-24-2023 Estimated GFR (MDRD) Amer 100 mL/min >[address] [facility] Comment on above: GFR Calc Estimated GFR (MDRD) Non-Af Amer 83 mL/min >[address] [facility] Comment on above: Non- GFR Calc Platelet mean volume Patrice-Ec ker (Bld) [Entitic vol]Ordered By: Sabine Arreaga on 03-24-2023 Platelet mean volume (Bld) [Entitic vol] 10.7 fL 6.2-12.[address] [facility] RBC Auto (Bld) [#/Vol]Ordere d By: Sabine Arreaga on 03-24-2023 RBC (Bld) [#/Vol] 5.07 10*6/uL 4.2-5.4 [facility] Serum or plasma calcium jimenez urement (mass/volume)Ordered By: Sabine Arreaga on 03-24-2023 Calcium [Mass/Vol] 9.8 mg/dL 8.5-10.1 [facility] Serum or plasma creatinine m easurement (mass/volume)Ordered By: Sabine Arreaga on 03-24-2023 Creatinine [Mass/Vol] 0.76 mg/dL 0.55-1.02 [facility] Comment on above: The validity of the calculated GFR & GFRAA in patients over 70 years has not been determined. Clinical correlation is essential. Serum or plasma thyroid stim ulating hormone (TSH) measurement (units/volume)Ordered By: Sabine Arreaga on 03-24-2023 TSH Qn 2.17 uIU/mL 0.358-3.[address] [facility] Serum or plasma urea nitroge n measurement (mass/volume)Ordered By: Sabine Arreaga on 03-24-2023 Urea nitrogen [Mass/Vol] 13 mg/dL 7-[address] [facility] Thin prep Papanicolaou smear with manual screeningOrdered By: Sabine Arreaga on 03-24-2023 Thin prep Papanicolaou smear with manual screening 4.2 g/dL 3.2-5.[address] [facility] Thin prep Papanicolaou smear with manual screening 30 U/L 15-[address] [facility] Thin prep Papanicolaou smear with manual screening 4 5-[address] [facility] Whole blood hemoglobin A1c/t otal hemoglobin ratio (mass fraction)Ordered By: Sabine Arreaga on 03-24-2023 HbA1c (Bld) [Mass fraction] 5.3 % 3.8-5.[address] [facility] Comment on above: Normal < 5.7 % Predi abetic 5.7 - 6.4 % Diabetic >or= 6.5 % Please note range changes. Office Visit: Follow up colo noscopyon 01-03-2017 Documentation of current medications (procedure) Done Invalid Interpretation Code [facility] [employer] Work Phone: Tobacco smoking status NHIS Never Invalid Interpretation Code [facility] [employer] Work Phone: Tobacco use [facility] Never smoker Invalid Interpretation Code [facility] [employer] Work Phone: Office Visit: c-scopeon -0 Documentation of current medications (procedure) Done Invalid Interpretation Code [facility] [employer] Work Phone: Fall risk assessment No Invalid Interpretation Code [facility] [employer] Work Phone: Tobacco smoking status NHIS Never Invalid Interpretation Code [facility] [employer] Work Phone: Tobacco use [facility] Never smoker Invalid Interpretation Code [facility] [employer] Work Phone: Vital Signs Date Time Vital Sign Value Performing Clinician Carly flores 11-22-2016 13:28-0400 BMI (Body Mass Index) 25.51 kg/m2 Willy Quach MD [facility] [employer] Work Phone: 11-22-2016 13:28-0400 BP Diastolic 136 mm[Hg] Willy Quach MD [facility] [employer] Work Phone: 11-22-2016 13:28-0400 BP Systolic 190 mm[Hg] Willy Quach MD [facility] [employer] Work Phone: 11-22-2016 13:28-0400 Height 154.94 cm Willy Quach MD [facility] [employer] Work Phone: 11-22-2016 13:28-0400 Pulse (Heart Rate) 132 /min Willy Quach MD [facility] [employer] Work Phone: 11-22-2016 13:28-0400 Weight 61.24 kg Willy Quach MD [facility] [employer] Work Phone: Encounters Encounter Date Encounter Type Care Provider Facility Start: 01-06-2025 ambulatory [facility] Facility:[facility] Start: 12-30-2024 ambulatory [facility] Facility:[facility] Start: 06-11-2024 End: 06-11-2024 ambulatory Camille Brenner MD Work Phone: [facility] Work Phone: Start: 06-11-2024 End: 06-11-[address] Camille Brenner MD -Outpatient [facility] Work Phone: Start: 06-11-2024 End: [facility] Start: 05-26-2023 End: 05-26-[address] [facility] Work Phone: Start: 05-26-2023 End: 05-26-2023 Patient encounter procedure [facility] Work Phone: Start: 03-24-2023 End: 03-24-[address] [facility] Work Phone: Start: 03-24-2023 End: 03-24-2023 Patient encounter procedure [facility] Work Phone: Start: 04-08-2022 End: 04-08-[address] [facility] Work Phone: Start: 04-08-2022 End: 04-08-2022 Patient encounter procedure [facility] Procedures Date Procedure Procedure Detail Performing Clinician Start: 06-11-2024 Screening mammography Anahi Brenner MD Work Phone: Start: 05-26-2023 Screening mammography Start: 04-08-2022 Screening mammography H/O: surgery Hx of prior abla tion treatment Plan of Treatment Date Care Activity Detail Author Start: 01-03-2017 End: 01-03-[address] [facility] Work Phone: Start: 12-21-2016 End: 12-21-[address] [facility] Work Phone: Start: 11-22-2016 End: 11-22-2016 Colonoscopy flx dx w/collj spec when pfrmd Colonoscopy [facility] Work Phone: Start: 11-22-2016 End: 11-22-[address] [facility] Work Phone: Payers Date Payer Category Payer Self-pay [id number] 2016 Unknown [id number] Unknown [employer] [id number] Unknown [id number] Unknown [id number] Unknown [id number] Social History Date Type Detail Facility Start: 09-16-2020 End: 07-07-2022 Tobacco smoking status NHIS Unknown if ever smoked [facility] Start: 06-01-2020 Non-smoker [facility] Start: 1965 Sex Assigned At Female [facility] Start: 11-27-2023 Tobacco smoking stat us NHIS Never smoked tobacco (finding) [facility] Start: 06-17-2024 Sex Female (finding) [facility] Evaluation note Note Date & Type Note Facility Evaluation note No assessment information availa ble [facility] Work Phone: Reason for referral (narrative) Note Date & Type Note Facility Reason for referral (narrative) No reason for referral information available [facility] Work Phone: Chief Complaint and Reason for Visit Chief Complaint SCREENING Chief Complaint NEED ORDER Chief Complaint NEED ORDER screening Chief Complaint Admit Date screening mammogram June 11, 2024 1:3 2pm Family History No Family History Records Found Relationship Condition Age at Onset Recorded Date/T erasmo mother High blood cholesterol Unknown Malignant neoplasm Unknown father Malignant neoplasm of colon Unknown Kidney disorder Unknown Diabetes mellitus Unknown Relationship Condition Age at Onset Recorded Date/T erasmo mother High blood cholesterol Unknown Malignant neoplasm Unknown father Kidney disorder Unknown Diabetes mellitus Unknown Malignant neoplasm of colon Unknown Advance Directives No Advanced Directives Records Found Advance Directive Response Recorded Date/ Time Living Will Yes September 11, 2020 7:54am Power of Railroader Yes September 11 7:54am Advance Directive Response Recorded Date/ Time Living Will Yes September 11, 2020 8:54am Power of Railroader Yes September 11 8:54am Summary Purpose Additional Source Comments Care Teams (unrecognized sec tion and content) Team Status: Active Member Role Status Dates Dr. Kartik Ritchie MD Family Provider Active Dr. Kartik Ritchie MD Primary Care Provider Activ e Team Status: Inactive Member Role Status Dates Dr. Kartik Ritchie MD Primary Care Provider Activ e Dr. Layla oJiner DO Attending [facility] Active Team Status: Inactive Member Role Status Dates Dr. Kartik Ritchie MD Primary Care Provider Activ e Sabine Arreaga , DO Attending Provider, Referring Pr ovider Active Team Status: Active Member Role Status Dates Dr. Marco Ritchie MD Family Provider Active Sabine Arreaga , DO Primary Care Provider Active Team Status: Inactive Member Role Status Dates Dr. Marco Ritchie MD Primary Care Provider Acti ve Sabine Arreaga , DO Attending Provider, Referring Pr ovider Active Team Status: Inactive Member Role Status Dates Sabine Arreaga , Primary Care Provi mauricio, Attending Provider, Referring Provider Active Team Status: Active Member Role Status Dates Camille Brenner MD Primary Care Provider Active Team Status: Inactive Member Role Status Dates Camille Brenner MD Primary Care Provider Active St art: June 11, 2024 End: June 11, 2024 Camille Brenner MD Attending Provider Active Start : June 11, 2024 End: June 11, 2024 Camille Brenner MD Referring Provider Active Start : June 11, 2024 End: June 11, 2024 Goals (unrecognized section and content) Goals may be documented in a n alternate sectionGoals may be documented in an alternate sectionGoals may be documented in an alternate sectionGoals may be documented in an alternate section INFORMATION SOURCE (unrecogn ized section and content) DATE CREATED AUTHOR 01/02/2025 [facility] FOR RECORDS PERTAINING TO PATIENTS WHO ARE OR HAVE BEEN ENROLLED IN A CHEMICAL DEPENDENCY/SUBSTANCEABUSE PROGRAM, SOME INFORMATION MAY BE OMITTED. This clinical summary was aggregated from multiple sources. Caution should be exercised in using it in the provision of clinical care. This summary normalizes information from multiple sources, and as a consequence, information in this document may materially change the coding, format and clinical context of patient data. In addition, data may be omitted in some cases. CLINICAL DECISIONS SHOULD BE BASED ON THE PRIMARY CLINICAL RECORDS. [employer] provides no warranty or guarantee of the accuracy or completeness of information in this document.
[2025-01-06 09:11] LABS: AST(SGOT) 50 U/L (<=31); Alanine Aminotransfer ALT/SGPT 74 U/L (<=34)
[2025-01-07 03:07] LABS: HEPATITIS B SURFACE AG Negative (Negative); Hep C Antibodies Non Reactive (Non Reactive)
== END | disposition home or self-care (01) ==
PROVIDERS: PCP Family Medicine; Referring Provider Family Medicine; Visit Provider Family Medicine
DX: R74.8 Abnormal levels of other serum enzymes (principal)
CPT/HCPCS: 36415; 76705; 80074; 84450; 84460